=== PATIENT | male | born 1945 | race Caucasian/White ===

== ENCOUNTER 2017-08-27 08:50 | Inpatient (IN) | payer OTHER, MEDICARE ==
--- NOTE | 2017-08-27 09:14 | EDPHY ---
H & P Time Seen by Provider: 08/27/17 08:51 HPI/ROS: CHIEF COMPLAINT: Aggressive behavior HISTORY OF PRESENT ILLNESS: The patient is brought to the emergency department by paramedics after his daughter contacted them with concerns that the patient may be, mentally unstable. The patient reportedly has a history of bipolar mood disorder requiring hospitalization earlier in the year. The patient was cooperative with paramedics. The patient has been cooperative since his arrival in the emergency department. Patient is unable to articulate what medications he takes for his bipolar mood disorder simply stating that his daughter keeps track of these things. The patient denies any recent fall, headache, febrile illness, vomiting or acute complaint. The patient denies suicidal or homicidal ideation. The patient does report that his was recently discharged from [facility] with a hip fracture. REVIEW OF SYSTEMS: A comprehensive 10 point review of systems is otherwise negative aside from elements mentioned in the history of present illness. Source: Patient - Medical/Surgical History Other PMH: Past medical history: Hypertension, diabetes, reported history of bipolar mood disorder - Social History Smoking Status: Never smoked - Physical Exam Exam: General Appearance: Alert, no distress Eyes: Pupils equal and round no pallor or injection ENT, Mouth: Mucous membranes moist Respiratory: There are no retractions, lungs are clear to auscultation Cardiovascular: Regular rate and rhythm Gastrointestinal: Abdomen is soft and nontender, no masses, bowel sounds normal Neurological: A&O, normal motor function, normal sensory exam, normal cranial nerves Skin: Warm and dry, no rashes Musculoskeletal: Neck is supple nontender Extremities: symmetrical, full range of motion Psychiatric: Patient is oriented X 3, there is no agitation, cooperative Constitutional: Initial Vital Signs Temperature (C) 36.8 C 08/27/17 09:03 Heart Rate 75 08/27/17 09:03 Respiratory Rate 16 08/27/17 09:03 Blood Pressure 207/92 H 08/27/17 09:03 O2 Sat (%) 94 08/27/17 09:03 O2 Delivery Mode Room Air Allergies/Adverse Reactions: No Known Drug Allergies Allergy (Verified 08/27/17 09:12) Home Medications: Medication Instructions Recorded Amlodipine Besylate 08/27/17 Aspirin 81mg (*) 08/27/17 Atorvastatin Calcium 08/27/17 Dextrose Oral Gel 08/27/17 Insulin Glargine 08/27/17 Lisinopril 08/27/17 Metformin HCl 08/27/17 Saxagliptin HCl 08/27/17 traZODone 08/27/17 Medical Decision Making ED Course/Re-evaluation: The patient's daughter reports that she has been concerned that the patient is becoming somewhat disorganized and confused over the past several days. The patient was advised by his outpatient psychiatrist to seek emergency department care should this happen. Currently the patient is appropriate not suicidal, not homicidal and has seems oriented to the emergency department and recent history. The patient was recently hospitalized at the [facility] with bipolar mood disorder requiring ECT treatment. He has been here in [place] for the past several weeks. He is currently under the care of a psychiatrist at the [facility]. The patient's daughter would like to take him to the [facility] to be evaluated for voluntary inpatient psychiatric hospitalization. The patient does not currently meet criteria for an M1 psychiatric hold. I did attempt to reach the patient's primary psychiatrist however have not yet heard back from him. At 11:00 a.m. I am informed that the patient's daughter would like to take him to the [facility] and would not like to have me consult with his regular outpatient psychiatrist. As the patient does not currently meet criteria for M1 psychiatric hold the patient will be discharged from the emergency department so that they can be evaluated for psychiatric care at [facility]. Differential Diagnosis: Differential diagnosis considered includes psychosis, bipolar mood disorder, depression, suicidal ideation Departure - Departure Disposition: Home, Routine, Self-Care Clinical Impression: Bipolar mood disorder Condition: Good Instructions: Psychotic Disorder (ED) Additional Instructions: 1. Follow up with Psychiatry of [facility]. 2. Please contact 911 and return to the emergency department for suicidal thoughts, homicidal thoughts, markedly worsening psychiatric disposition or other concerns.
[2017-08-28] MEDS ORDERED: NICOTINE POLACRILEX 2 MG GUM B PRN (01:35)
[2017-08-28] MEDS ORDERED: MAGNESIUM HYDROXIDE 30 ML UDCUP PO PRN (01:35)
[2017-08-28] MEDS: ACETAMINOPHEN 325 MG TAB PO PRN ×3 (05:07→17:32)
[2017-08-28] MEDS: ASPIRIN EC 81 MG TAB PO SCH (08:22)
[2017-08-28] MEDS: LISINOPRIL 20 MG TAB PO SCH (08:23)
[2017-08-28] MEDS: amLODIPine BESYLATE 5 MG TAB PO SCH (08:23)
[2017-08-28] MEDS ORDERED: D50W 25 GM/50 ML SYR IVP PRN (11:58)
[2017-08-28] MEDS: INSULIN LISPRO 100 UNIT/1 ML VIAL STANDARD SC SCH ×2 (12:36→17:10)
--- NOTE | 2017-08-28 14:50 | BCON ---
[f rep st] BEHAVIORAL HEALTH CONSULTATION INTERNAL MEDICINE CONSULTATION DATE OF CONSULTATION: 08/28/2017 REFERRING PHYSICIAN: Niyah Morris MD REASON FOR REFERRAL: Medical clearance for inpatient behavioral health stay. HISTORY OF PRESENT ILLNESS: This patient presented to the [facility] Emergency Department yesterday, brought in by his daughter with concerns that he was mentally unstable. He did not appear to meet criteria for inpatient Behavioral Health at that time, and daughter preferred to take him to the [facility] for evaluation. He was evaluated at the [facility] and subsequently referred back to [facility] for inpatient psychiatry. He currently has no acute medical complaints. PAST MEDICAL HISTORY: 1. Diabetes mellitus type 2. 2. Hypertension. 3. Bipolar disorder with history of prior psychiatric admissions and electroconvulsive therapy. 4. Sciatica. MEDICATIONS: 1. Trazodone 50 mg p.o. at bedtime p.r.n. 2. Aspirin 81 mg p.o. daily. 3. Insulin glargine 40 units subcutaneous daily. 4. Saxagliptin 2.5 mg 1 p.o. daily. 5. Metformin 1000 mg p.o. twice daily. 6. Lisinopril 40 mg p.o. daily. 7. Atorvastatin 80 mg p.o. at bedtime. 8. Amlodipine 5 mg p.o. daily. SOCIAL HISTORY: He is reticent to reveal social history. He apparently lives in assisted living. His may have been in a memory care unit. His has recently had a hip fracture and is currently in a rehabilitation facility. His daughter is involved with his care. 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 He is a nonsmoker and uses occasional alcohol. FAMILY HISTORY: Noncontributory. He makes very vague references to his father , but more to his father's work in the 1950s. REVIEW OF SYSTEMS: He denies fevers, chills, weight gain or weight loss or chest pain, palpitations, dyspnea or cough. No nausea, vomiting, constipation, or diarrhea. He denies dysuria or urinary frequency. He denies loss of sensation in his feet. PHYSICAL EXAM: VITAL SIGNS: Blood pressure is 186/93. This was at 1:40 this morning, heart rate was 85, respiratory rate was 16, oxygen saturation was 98% on room air. Temperature is 36.3 degrees centigrade. His weight is 90.7 kg for a body mass index of 28.3. GENERAL: This is a well-nourished, well- developed man, appears his chronologic age, cooperative and in no acute distress. HEENT: Extraocular movements are intact. Pupils are equal, round, reactive to light. Mucous membranes are moist. Dentition is in good condition. He has uncrowded airway, Mallampati class 1. NECK: Supple. HEART : There is a regular rate and rhythm with no murmurs, rubs, or gallops. LUNGS : Clear to auscultation bilaterally. ABDOMEN: Benign. EXTREMITIES: There is no cyanosis, clubbing, or edema. Radial and posterior tibialis pulses are 2 + bilaterally. NEUROLOGIC: He is alert, he is oriented to his general situation, the month and the date of the month. He identifies the year as 2018. Cranial nerves 2-12 are grossly intact. There is no focal weakness. Sensation is intact to light touch. Gait is within normal limits. [facility] ST[facility] revealed mild anemia with a hemoglobin of 12.3 and hematocrit of 38.1, platelet count was normal. Urine drug screen was negative for any substances of abuse. Troponin was negative. Serum chemistry revealed an elevated chloride at 106, an elevated glucose at 247, but otherwise renal function and electrolytes were within normal limits. Liver function tests were normal. TSH was normal at 1.49. Urinalysis showed 150 mg/ dL of glucose and moderate protein. There was small blood; otherwise, urinalysis was within normal limits. ASSESSMENT AND RECOMMENDATIONS: 1. Mental health issues, pending further evaluation and management per Psychiatry and the mental health team. 2. Possible cognitive impairment. He appears to have expressive aphasia with frequent word substitutions and word finding difficulty. Additionally, he is vague in his responses to many questions. This may be related to his current mental health condition and he does report lack of sleep; however, especially as his mental health condition is stabilized, consider cognitive testing. This could be done per Speech and Language Pathology while he is inpatient, or he could be referred after discharge. 3. Diabetes mellitus type 2. I will order medications per the [facility] list. I will substitute sitagliptin for saxagliptin as sitagliptin is on hospital formulary and I will order his long-acting insulin as well. 4. Hypertension. Current medications appear to be consistent with [facility]. However, blood pressure is markedly elevated. Advise continuing monitoring and if blood pressure remains significantly elevated, would consider addition of a diuretic as he is already on 2 medications versus maximizing doses of the amlodipine and lisinopril. If treatment with lithium is contemplated, then angiotensin-converting enzyme inhibitor should be discontinued. 5. Anemia, unclear etiology. He can have routine workup as an outpatient regarding age-appropriate cancer screening. 6. Hematuria. Advise urology evaluation after discharge. 7. Proteinuria, likely related to hypertension, diabetes, and will be appropriately treated with angiotensin-converting enzyme inhibitor as well as improved blood pressure control. He does not currently have renal insufficiency. I see no medical contraindications to this patient's continued stay in the inpatient behavioral health unit or to any psychiatric medications or procedures. Thank you very much for including me in the care of this patient, and please do not hesitate to contact me or the hospitalist service should there be need for further medical evaluation. /[id number]/MODL MTDD
[2017-08-28] MEDS: INSULIN GLARGINE 100 UNITS/ML UNIT SC SCH (17:10)
[2017-08-28] MEDS: metFORMIN HCL 500 MG TAB PO SCH (17:11)
--- NOTE | 2017-08-28 17:25 | BAPA ---
[f rep st] ADMISSION PSYCHIATRIC ASSESSMENT CHIEF COMPLAINT: "I think it's coming around full robinson. My daughter had me picked up by mistake a nd now I can leave." HISTORY OF PRESENT ILLNESS: The patient is a 72-year-old male with a history of major depr ession with reported recent catatonia treated in May of 2017. He was brought in by his daughter due to erratic behaviors and increasing disorganization. The patient is unable to give a clear hist ory or answer any specific questions in regard to his current emotional state or thinking. He states , "I was in the robinson thing with your nursing staff, and she was excellent. Everything was great un til the rockets came in. It's all right with me as long as they don't change where I live. As long as it's not 600 feet. That is not a complaint. I will pray for those souls, but I can't say I will come back to [facility]." The patient displays a completely disorganized thought process and is unable to give this history. The chart indicates that he has a history of mood disorder and has had catatonia, and that he is under some level of stress with his being in a memory care unit with d iffuse Lewy body disease. His primary caregiver and power of deputy prosecuting attorney is his daughter. I have left a message for her and currently awaiting a callback, hoping to get further information. PAST PSYCHIATRIC HISTORY: Significant for a history of major depression, and he was apparently hospi talized at the [facility] in May of 2017, where he received ECT with good effect for catatonia. He cannot explain why he is not on any medications for depression at this time, however. ALLERGIES: No known medical allergies. CURRENT MEDICATIONS: Amlodipine 50 mg daily, clonidine 0.2 mg at bedtime, and lisinopril 40 mg daily . PAST MEDICAL HISTORY: Significant for hypertension and type 2 diabetes. 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 The patient states that he has napoleon ed his life in [facility], where he still has a home. His daughter lives in this area, aidan h is why he is here at this time. The patient is unable to say whether or not he lives here full-darnell e or with his daughter or in what circumstance. The patient's daughter is his power of deputy prosecuting attorney for medical care. Her phone number is [phone]. The patient is a retired vet, stating he was in [facility] from . He receives services through the [facility]. FAMILY HISTORY: Not obtained. ADMISSION LABORATORY: Additional labs were not drawn. The patient received a full complement of lab oratory testing in the [place] emergency department, though I was only given a verbal report of this and d o not have the physical copies for any at this time. MENTAL STATUS EXAMINATION: Reveals a healthy-appearing, adequately groomed male. He is ap propriately dressed in a shirt, sweat pants, and a jacket. He is also wearing a ball cap and running shoes. He interacts reasonably well and is able to maintain eye contact, though not particularly at tentive. This is primarily a product of his extremely disorganized thought process, as he is unable to relate many concepts at all. He is able to make singular sentences that are, otherwise, unrelated to each other, as demonstrated in his history of present illness. His affect is somewhat labile, as he is irritable at times, laughs at other times, and cries at other times. He describes his mood as "very depressed." His thought process is disorganized. His thought content reveals no mention of p aranoia or other delusional processes, and he denies any auditory, visual, or tactile hallucinations. He is unable to answer questions regarding formal cognitive testing or follow commands in regard to testing of his working memory. He does not answer questions in regard to orientation. He does not, however, seem to be distractible or actively hallucinating. IMPRESSION: Major depressive disorder, recurrent, severe, with psychosis, possible early catatonia, possible dementia, stress with 's illness, and possible stress related to housing situation. The patient is a pleasant 72-year-old male with a history of major depression, with cataton ia and recent decompensation. It is unclear if the level of disorganization we are seeing is related to this or not. He does not appear to be delirious, so it is most likely related to his mood disord er. He was transferred from our facility to the [facility] for evaluation and then transferred back by the [facility], requesting psychiatric treatment with consideration of ECT. We will certainly observe and conside r ECT treatment should we deemed this to be helpful. For now, we will continue him on his previous m edications and conduct serial clinical interviews to provide the best diagnostic impression. Estimated length of stay is 7-10 days. /[id number]/MODL
[2017-08-28] MEDS: MAG HYDROX/AL HYDROX/SIMETH 30 ML UDCUP PO PRN (21:57)
[2017-08-29] MEDS: ACETAMINOPHEN 325 MG TAB PO PRN ×2 (01:34→21:43)
[2017-08-29] MEDS: LORazepam 0.5 MG TAB PO PRN ×2 (01:34→23:54)
[2017-08-29] MEDS: LISINOPRIL 20 MG TAB PO SCH (07:45)
[2017-08-29] MEDS: metFORMIN HCL 500 MG TAB PO SCH ×2 (07:45→17:16)
[2017-08-29] MEDS: INSULIN GLARGINE 100 UNITS/ML UNIT SC SCH ×2 (07:46→17:16)
[2017-08-29] MEDS: ASPIRIN EC 81 MG TAB PO SCH (07:46)
[2017-08-29] MEDS: amLODIPine BESYLATE 5 MG TAB PO SCH (07:46)
[2017-08-29] MEDS: INSULIN LISPRO 100 UNIT/1 ML VIAL STANDARD SC SCH ×3 (07:48→17:24)
--- NOTE | 2017-08-29 11:46 | SOAPPROG ---
SOAP Progress Note Assessment/Plan: Assessment: 08/29/17 17:10 slept 1hr last night, per staff. sometimes noted talking to self, and with disorganized speech/writing to staff states he "had a good night sleep last night, I'm trying to help people, wearing out my shoes..." no physical complaints. thinks he is in hosp b/c "catatonia, my daughter is afraid I'm recurring". Does feel she has reason to feel this way. Feels he is thinking "more clearly this morning and after talking with admissions, I'm coming up the racetrack, like Mr. Puentes's Wild ride..." Wondering why security nodded head towards him earlier today, and whether there was meaning in that denied feeling depressed or having any SI. TP/TC-noted with disorganization, denied AH/VH but seemed to have some ideas of reference and was noted to possibly be responding to int stim later on unit as he was talking to himself. unable to state date, "May", "I didn't look this morning", then frustrated with question and refused to answer further orientation questions. PLAN: hospitalist increased Lisinopril to 40mg qd for HTN Dtr notified staff that she found large hidden liquor bottle at his apt, about 1 /2 full. Will monitor for any sxs of etoh w/d, has not been tremulous, but has had elev BP, P. Has prn Ativan avail, will offer as needed. Thiamine, Folate, MVI. Trazodone 25mg hs prn, with additional 25mg hs prn after 1hr for insomnia. Has been on trazodone in past with benefit. On - exp 08/30. Dtr states he required c.o. ECT in [place] last fall Objective: Vital Signs Temp Pulse Resp BP Pulse Ox 36.6 C 86 16 187/84 H 96 08/29/17 00:22 08/29/17 07:59 08/29/17 07:59 08/29/17 07:59 08/29/17 07:59 - Time Spent With Patient Time Spent With Patient: 40min - Pending Discharge Pending Discharge Within 24 Hours: No Pending Discharge Within 48 Hours: No ICD10 Worksheet Patient Problems: Problems Problem Status Onset Bipolar mood disorder Acute
--- NOTE | 2017-08-29 15:06 | HOSPPROG ---
Hospitalist Progress Note Assessment/Plan: #HTN #IDDM #Bipolar with Agitation Plan: BP have ranged between 160's-low 200 systolic/80''s-90. He attributes it to agitation Cont Amlodipine 5mg daily increase Lisinopril to 40mg daily. Give additional 20 mg today He may need a third agent such as HCTZ but will attempt increase of SHI-I above If [place] is started, strategy will need to be changed cont current insulin regimen Cont Aspirin check Labs Subjective: reports BP is elevated as he is stressed and gets agitated. No CP or SOB Objective: Vital Signs Temp Pulse Resp BP Pulse Ox 36.6 C 102 H 16 178/90 H 95 08/29/17 00:22 08/29/17 11:54 08/29/17 11:54 08/29/17 11:54 08/29/17 11:54 - Physical Exam Constitutional: no apparent distress Eyes: PERRL, EOMI Ears, Nose, Mouth, Throat: moist mucous membranes, hearing normal Cardiovascular: regular rate and rhythym, No edema Respiratory: no respiratory distress, no rales or rhonchi, clear to auscultation Gastrointestinal: normoactive bowel sounds, soft, non-tender abdomen Skin: warm Psychiatric: interacting appropriately, anxious Lymph, Heme, Immunologic: No petechiae ICD10 Worksheet Patient Problems: Problems Problem Status Onset Bipolar mood disorder Acute
[2017-08-29] MEDS ORDERED: LISINOPRIL 20 MG TAB PO ONE (15:15)
[2017-08-30] MEDS ORDERED: traZODone 50 MG TAB PO PRN (00:09)
[2017-08-30] MEDS: INSULIN LISPRO 100 UNIT/1 ML VIAL STANDARD SC SCH ×3 (07:54→16:24)
[2017-08-30] MEDS: MULTIVITAMINS 1 EACH TAB PO SCH (08:09)
[2017-08-30] MEDS: LISINOPRIL 20 MG TAB PO SCH (08:10)
[2017-08-30] MEDS: THIAMINE HCL 100 MG TAB PO SCH (08:10)
[2017-08-30] MEDS: amLODIPine BESYLATE 5 MG TAB PO SCH (08:10)
[2017-08-30] MEDS: ASPIRIN EC 81 MG TAB PO SCH (08:10)
[2017-08-30] MEDS: metFORMIN HCL 500 MG TAB PO SCH ×2 (08:10→17:08)
[2017-08-30] MEDS: FOLIC ACID 1 MG TAB PO SCH (08:10)
[2017-08-30] MEDS: ACETAMINOPHEN 325 MG TAB PO PRN ×2 (11:01→19:48)
[2017-08-30] MEDS: LORazepam 0.5 MG TAB PO PRN (16:20)
--- NOTE | 2017-08-30 20:26 | SOAPPROG ---
SOAP Progress Note Assessment/Plan: Assessment: 08/29/17 17:10 slept 1hr last night, per staff. sometimes noted talking to self, and with disorganized speech/writing to staff states he "had a good night sleep last night, I'm trying to help people, wearing out my shoes..." no physical complaints. thinks he is in hosp b/c "catatonia, my daughter is afraid I'm recurring". Does feel she has reason to feel this way. Feels he is thinking "more clearly this morning and after talking with admissions, I'm coming up the racetrack, like Mr. Puentes's Wild ride..." Wondering why security nodded head towards him earlier today, and whether there was meaning in that denied feeling depressed or having any SI. TP/TC-noted with disorganization, denied AH/VH but seemed to have some ideas of reference and was noted to possibly be responding to int stim later on unit as he was talking to himself. unable to state date, "May", "I didn't look this morning", then frustrated with question and refused to answer further orientation questions. PLAN: hospitalist increased Lisinopril to 40mg qd for HTN Dtr notified staff that she found large hidden liquor bottle at his apt, about 1 /2 full. Will monitor for any sxs of etoh w/d, has not been tremulous, but has had elev BP, P. Has prn Ativan avail, will offer as needed. Thiamine, Folate, MVI. Trazodone 25mg hs prn, with additional 25mg hs prn after 1hr for insomnia. Has been on trazodone in past with benefit. On -08/30. Dtr states he required c.o. ECT in [place] last fall 08/30/17 16:57 slept 3.5hr last night. med error per RN, received 2x Lantus 40u yesterday(am, pm). dose held this am. hospitalist and pt aware. no reported s/e. continued monitoring w/fs glc and clinically. per staff, pt irritated if staff not able to follow his train of thought. continues disorganized. asked staff to help him tear a piece of paper in half, and he was not able to do so b/c had coffee in one hand, required staff to direct him. walks around with his toiletries. agreed to stay as vol patient when M-1 expiring soon discussed, "I will stay b/ c it won't be safe the next 2 days out there...[facility] day events...tonight's excitement...Frenchmen are trying to leaf size picker behind me...fire dept escape area...I need to watch the Olympics to find out what is going on". States he is helping others here, and mentioned a morning twinkle across the street from [place]. On interview, casually dressed, pleasant and engaging. unshaved. good EC, nml speech rate/vol, mood "fine", affect full range, TP/TC-rambling, disorganized and loose, denied AH/VH presently but reports "I heard rockets last night...avalanche control...three BOOMs". talked of having heard someone on above floor dying, and sometimes hears people on floor below. i/j-impaired/ poor. recognizes not completely being at baseline. quite dysexecutive. A/O to person, place "[facility]", and "second month, , " When asked if he felt his thoughts were jumping around, pt pointed to rooms in agui[place] across each other, "the rooms keep switching back and forth" (waves finger back and forth). very fine intention tremor on FNF. Unable to complete Luria hand task without examiner, and had some difficulty copying [id number]. Incorporated F-N-F movements (when checked for tremor) into Luria hand task: fist, touched nose, fist. Endorsed EtOH use at home, especially b/c felt anxious about his falling and going to hospital; about 1.5 "tami cup" size shots, and used to share with 1/2. Unable to clearly state amount or last use, denied recent use, but no more than 1.5 shots/day and not daily. PLAN: Discussed options for signing in vol, d/c or STC upon expiration of M-1. Explained to pt he will be placed on STC even after he agreed to stay voluntarily. Informed of rights which will be reviewed, right to 3rd constitution party notification and legal representation. Apparently with similar sxs but much worse, and completely neg extensive w/u in [place] 05/2017. Was on ativan for catatonia until started ECT. Not sleeping, and had been on trazodone in past with benefit for sleep, 25mg helped some, will incr to 50mg Change prn Ativan to 1mg q4hr prn. Incr freq of VS to QS. BP and P have been elevated. Ativan prn may also help with incr VS, and if any element of etoh w/d altho unlikely at this point and no other sxs. Staff report pt with adeq po oral/fluid intake. Objective: Vital Signs Temp Pulse Resp BP Pulse Ox 36.4 C 98 14 150/72 H 97 08/30/17 05:13 08/30/17 05:13 08/30/17 05:13 08/30/17 05:30 08/30/17 05:13 - Time Spent With Patient Time Spent With Patient: 35min - Pending Discharge Pending Discharge Within 24 Hours: No Pending Discharge Within 48 Hours: No ICD10 Worksheet Patient Problems: Problems Problem Status Onset Bipolar mood disorder Acute
[2017-08-30] MEDS: LORazepam 1 MG TAB PO PRN (20:35)
[2017-08-31] MEDS: LORazepam 1 MG TAB PO PRN ×2 (00:28→19:24)
[2017-08-31] MEDS: traZODone 50 MG TAB PO PRN ×2 (00:28→20:58)
[2017-08-31] MEDS ORDERED: diphenhydrAMINE 25 MG CAP PO ONE (01:45)
[2017-08-31] MEDS ORDERED: LORazepam 1 MG TAB PO ONE (01:45)
[2017-08-31] MEDS ORDERED: LORazepam 2 MG/ML INJ IM ONE (01:45)
[2017-08-31] MEDS: FOLIC ACID 1 MG TAB PO SCH (08:18)
[2017-08-31] MEDS: ASPIRIN EC 81 MG TAB PO SCH (08:18)
[2017-08-31] MEDS: metFORMIN HCL 500 MG TAB PO SCH ×2 (08:19→17:03)
[2017-08-31] MEDS: THIAMINE HCL 100 MG TAB PO SCH (08:20)
[2017-08-31] MEDS: amLODIPine BESYLATE 5 MG TAB PO SCH (08:20)
[2017-08-31] MEDS: LISINOPRIL 20 MG TAB PO SCH (08:21)
[2017-08-31] MEDS: INSULIN GLARGINE 100 UNITS/ML UNIT SC SCH (08:21)
[2017-08-31] MEDS: INSULIN LISPRO 100 UNIT/1 ML VIAL STANDARD SC SCH ×3 (08:21→16:59)
[2017-08-31] MEDS: MULTIVITAMINS 1 EACH TAB PO SCH (08:22)
--- NOTE | 2017-08-31 14:07 | SOAPPROG ---
SOAP Progress Note Assessment/Plan: Assessment: Plan: Subjective: Pt seen, discussed with staff. Remains agitated, disorganized. Completely unable to care for himself. Unable to even pour water in a glass or follow simple commands. More agitated last night requiring E-meds and seclusion. Slept after that. I was able to review the records from [facility]: d/c summary from [facility] where he initially received a full dementia w/u inc: thorough screening for paraneoplastic syndrome. This was all negative. He received 7 acute course ECT treatments that were described as curative. He then d/c'd to home with no meds and did not follow-up until early August. The description of his clinical presentation in May of 2017 was the same as this event. It was noted at that time that he had no history of these sx's or other psychiatric issues and he was diagnosed as having an unspecified mood disorder and catatonia. Interval hx obtained over the weekend from daughter is that she found a large bottle of alcohol in his room. Daughter called "hysterical" (per staff report) this morning stating that patient's is "actively dying" and wanting to take him out of the hospital to visit her. Objective: Vital Signs Temp Pulse Resp BP Pulse Ox 36.6 C 92 16 165/85 H 92 08/31/17 01:21 08/31/17 01:21 08/31/17 01:21 08/31/17 01:21 08/31/17 01:21 MSE: Agitated, restless, pacing without purpose. Noted to be in the milieu attempting to communicate with others, but using repetitive, pallilalic speech that is pressured, voluminous and nonsensical. He demonstrates a high level of non-goal directed behaviors. His affect is somewhat labile, smiling at times and becoming suddenly angry at others in an almost pseudobulbar pattern. He is unable to follow simple commands such as "follow me" without numerous redirections and physical guiding. He cannot answer any questions with a goal- directed response. - Time Spent With Patient Time Spent With Patient: 25" ICD10 Worksheet Patient Problems: Problems Problem Status Onset Bipolar mood disorder Acute
[2017-08-31] MEDS: QUEtiapine FUMARATE 25 MG TAB PO PRN (19:24)
[2017-09-01] MEDS: INSULIN GLARGINE 100 UNITS/ML UNIT SC SCH (08:43)
[2017-09-01] MEDS: LISINOPRIL 20 MG TAB PO SCH (08:44)
[2017-09-01] MEDS: MULTIVITAMINS 1 EACH TAB PO SCH (08:44)
[2017-09-01] MEDS: FOLIC ACID 1 MG TAB PO SCH (08:44)
[2017-09-01] MEDS: amLODIPine BESYLATE 5 MG TAB PO SCH (08:44)
[2017-09-01] MEDS: metFORMIN HCL 500 MG TAB PO SCH ×2 (08:44→18:51)
[2017-09-01] MEDS: THIAMINE HCL 100 MG TAB PO SCH (08:44)
[2017-09-01] MEDS: ASPIRIN EC 81 MG TAB PO SCH (08:44)
[2017-09-01] MEDS: INSULIN LISPRO 100 UNIT/1 ML VIAL STANDARD SC SCH ×3 (08:46→17:38)
[2017-09-01] MEDS: LORazepam 1 MG TAB PO PRN ×2 (10:27→18:52)
[2017-09-01] MEDS: QUEtiapine FUMARATE 25 MG TAB PO PRN ×2 (10:28→15:11)
--- NOTE | 2017-09-01 11:04 | SOAPPROG ---
SOAP Progress Note Assessment/Plan: Assessment: Plan: 09/01/17 11:04 Mood: Remains catatonically excited. Will petition court for involuntary ECT as patient is clearly unable to provide consent at this time. Continue PRN Seroquel and lorazepam. Subjective: Pt seen, discussed with staff. Remains disorganized, unable to meaningfully communicate with others. I waited 30 minutes for him to get dressed and he was unable to organized himself to do this. He stated repeatedly that he was "showering in the shower" though was standing in his room. Daughter called to report patient's last night. RN unable to get patient to speak to daughter on phone. Took PRN Seroquel last night without SE. Slept five hours. Objective: Vital Signs Temp Pulse Resp BP Pulse Ox 36.5 C 81 16 155/79 H 98 09/01/17 06:00 09/01/17 06:00 09/01/17 06:00 09/01/17 06:00 09/01/17 06:00 MSE: Agitated, hyperverbal. Affect is labile. TP is disorganized. TC reveals no evidence of hallucinations. Oriented to person and "[place]." - Time Spent With Patient Time Spent With Patient: 15" ICD10 Worksheet Patient Problems: Problems Problem Status Onset Bipolar mood disorder Acute
[2017-09-01] MEDS: LORazepam 0.5 MG TAB PO SCH ×2 (15:11→21:59)
[2017-09-01] MEDS ORDERED: QUEtiapine FUMARATE 100 MG TAB PO ONE (18:45)
[2017-09-01] MEDS: ACETAMINOPHEN 325 MG TAB PO PRN (19:06)
[2017-09-01] MEDS: traZODone 50 MG TAB PO PRN (21:59)
[2017-09-01] MEDS ORDERED: LORazepam 1 MG TAB PO PRN ×2 (23:00→23:30)
[2017-09-02] MEDS: LORazepam 1 MG TAB PO PRN (02:53)
[2017-09-02] MEDS: LISINOPRIL 20 MG TAB PO SCH (08:22)
[2017-09-02] MEDS: THIAMINE HCL 100 MG TAB PO SCH (08:22)
[2017-09-02] MEDS: LORazepam 0.5 MG TAB PO SCH ×3 (08:23→20:23)
[2017-09-02] MEDS: MULTIVITAMINS 1 EACH TAB PO SCH (08:23)
[2017-09-02] MEDS: FOLIC ACID 1 MG TAB PO SCH (08:23)
[2017-09-02] MEDS: ASPIRIN EC 81 MG TAB PO SCH (08:23)
[2017-09-02] MEDS: metFORMIN HCL 500 MG TAB PO SCH ×2 (08:23→17:16)
[2017-09-02] MEDS: amLODIPine BESYLATE 5 MG TAB PO SCH (08:23)
[2017-09-02] MEDS: INSULIN GLARGINE 100 UNITS/ML UNIT SC SCH (08:24)
[2017-09-02] MEDS: INSULIN LISPRO 100 UNIT/1 ML VIAL STANDARD SC SCH ×3 (08:39→17:16)
--- NOTE | 2017-09-02 14:21 | SOAPPROG ---
SOAP Progress Note Assessment/Plan: Assessment: Plan: 09/01/17 11:04 Mood: Remains catatonically excited. Will petition court for involuntary ECT as patient is clearly unable to provide consent at this time. Continue PRN Seroquel and lorazepam. 09/02/17 14:21 Catatonia: remains agitated, disorganized. Will [facility], await hearing for court ordered ECT. Subjective: Pt seen, discussed with staff. Quite agitated last night, appearing paranoid. Believed people were unsafe in the day room. Attempted to get people to leave, including putting his hands on one patient. Tried to force another patient stay in his room. Remains very disorganized, unable to review these events with me. Unable to communicate effectively or follow commands. Objective: Vital Signs Temp Pulse Resp BP Pulse Ox 36.6 C 90 16 117/64 95 09/02/17 04:40 09/02/17 04:40 09/02/17 04:40 09/02/17 04:40 09/02/17 04:40 MSE: Agitated, pressured. Affect is labile. TP disorganized. Unable to answer questions RE: orientation. Appears to be having paranoid thoughts. - Time Spent With Patient Time Spent With Patient: 15" ICD10 Worksheet Patient Problems: Problems Problem Status Onset Bipolar mood disorder Acute
[2017-09-02] MEDS: QUEtiapine FUMARATE 25 MG TAB PO PRN (20:24)
[2017-09-02] MEDS: traZODone 50 MG TAB PO PRN (20:25)
[2017-09-02] MEDS: MAG HYDROX/AL HYDROX/SIMETH 30 ML UDCUP PO PRN (20:31)
[2017-09-03] MEDS: INSULIN LISPRO 100 UNIT/1 ML VIAL STANDARD SC SCH ×3 (07:48→16:15)
[2017-09-03] MEDS: INSULIN GLARGINE 100 UNITS/ML UNIT SC SCH (07:57)
[2017-09-03] MEDS: amLODIPine BESYLATE 5 MG TAB PO SCH (07:57)
[2017-09-03] MEDS: ASPIRIN EC 81 MG TAB PO SCH (07:58)
[2017-09-03] MEDS: MULTIVITAMINS 1 EACH TAB PO SCH (07:58)
[2017-09-03] MEDS: FOLIC ACID 1 MG TAB PO SCH (07:58)
[2017-09-03] MEDS: THIAMINE HCL 100 MG TAB PO SCH (07:58)
[2017-09-03] MEDS: metFORMIN HCL 500 MG TAB PO SCH ×2 (08:00→16:29)
[2017-09-03] MEDS: LORazepam 0.5 MG TAB PO SCH ×3 (08:00→20:47)
[2017-09-03] MEDS: LISINOPRIL 20 MG TAB PO SCH (08:03)
[2017-09-03] MEDS: LORazepam 1 MG TAB PO PRN ×2 (13:04→22:12)
--- NOTE | 2017-09-03 14:28 | SOAPPROG ---
SOAP Progress Note Assessment/Plan: Assessment: Per Dr. Burciaga's notes: 09/01/17 11:04 Mood: Remains catatonically excited. Will petition court for involuntary ECT as patient is clearly unable to provide consent at this time. Continue PRN Seroquel and lorazepam. 09/02/17 14:21 Catatonia: remains agitated, disorganized. Will [facility], await hearing for court ordered ECT. Subjective: Pt seen, discussed with staff. Quite agitated last night, appearing paranoid. Believed people were unsafe in the day room. Attempted to get people to leave, including putting his hands on one patient. Tried to force another patient stay in his room. Remains very disorganized, unable to review these events with me. Unable to communicate effectively or follow commands. Plan: 09/03/17 14:21 1. Patient is calmer today, but remains confused, disoriented, disorganized. Patient not sure whether his "has passed" or is "staying at rehab." 2. Dressed himself, ate meals and interacted appropriately with peers. Attended but did not participate in group. 3. [facility] - PRN Seroquel and Ativan 4. Dr. Burciaga has petitioned for involuntary ECT Subjective: Met with patient, reviewed chart and d/w staff. Patient presents disorganized and confused, however, he is not excited or agitated as he was the past 2 days. He is calmer and able to sit for 20 minutes and talk to MD in calm, measured tone, but extremely confused and illogical. Patient jumps back and forth between recent events (being in hospital and getting ECT in [place]) and past ( talking about his [employer]'s service and as though it was yesterday) . Patient not able to say how many grandchildren he has or remember their names. He also thinks his is "staying at a rehab facility" but admits she "might have passed." He has no emotional reaction to either one of these thoughts. Patient says he has been spending his time "rearranging the kitchen" apropos of nothing. He jumps immediately to talking about being "exhausted from working so hard" but says "I retired in 2009." He does remember being at [facility] in "May," but can't remember why he was there, "maybe catatonia." No evidence of hallucinations or delusions. Objective: Vital Signs Temp Pulse Resp BP Pulse Ox 36.8 C 92 14 143/73 H 95 09/03/17 00:30 09/03/17 08:00 09/03/17 08:00 09/03/17 08:00 09/03/17 08:00 MSE: Mood: "I'm doing what I know how to do" Affect: Constricted TP: Circumstantial, disorganized, confused TC: Denies any SI/HI, no evidence of hallucination, delusions Insight/Judgment: Impaired - Time Spent With Patient Time Spent With Patient: 25" - Pending Discharge Pending Discharge Within 24 Hours: No Pending Discharge Within 48 Hours: No ICD10 Worksheet Patient Problems: Problems Problem Status Onset Bipolar mood disorder Acute
[2017-09-03] MEDS: ACETAMINOPHEN 325 MG TAB PO PRN (15:45)
[2017-09-04] MEDS: INSULIN LISPRO 100 UNIT/1 ML VIAL STANDARD SC SCH ×3 (07:46→16:19)
[2017-09-04] MEDS: INSULIN GLARGINE 100 UNITS/ML UNIT SC SCH (07:48)
[2017-09-04] MEDS: LISINOPRIL 20 MG TAB PO SCH (07:48)
[2017-09-04] MEDS: FOLIC ACID 1 MG TAB PO SCH (07:48)
[2017-09-04] MEDS: THIAMINE HCL 100 MG TAB PO SCH (07:48)
[2017-09-04] MEDS: LORazepam 0.5 MG TAB PO SCH ×3 (07:49→18:59)
[2017-09-04] MEDS: ASPIRIN EC 81 MG TAB PO SCH (07:49)
[2017-09-04] MEDS: MULTIVITAMINS 1 EACH TAB PO SCH (07:50)
[2017-09-04] MEDS: metFORMIN HCL 500 MG TAB PO SCH ×2 (07:50→18:32)
[2017-09-04] MEDS: amLODIPine BESYLATE 5 MG TAB PO SCH (07:50)
--- NOTE | 2017-09-04 13:29 | SOAPPROG ---
SOAP Progress Note Assessment/Plan: Assessment: Per Dr. Burciaga's notes: 09/01/17 11:04 Mood: Remains catatonically excited. Will petition court for involuntary ECT as patient is clearly unable to provide consent at this time. Continue PRN Seroquel and lorazepam. 09/02/17 14:21 Catatonia: remains agitated, disorganized. Will [facility], await hearing for court ordered ECT. Subjective: Pt seen, discussed with staff. Quite agitated last night, appearing paranoid. Believed people were unsafe in the day room. Attempted to get people to leave, including putting his hands on one patient. Tried to force another patient stay in his room. Remains very disorganized, unable to review these events with me. Unable to communicate effectively or follow commands. Plan: 09/03/17 14:21 1. Patient is calmer today, but remains confused, disoriented, disorganized. Patient not sure whether his "has passed" or is "staying at rehab." 2. Dressed himself, ate meals and interacted appropriately with peers. Attended but did not participate in group. 3. [facility] - PRN Seroquel and Ativan 4. 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 Patient still confused with short term memory loss. He told David BERNARD, he knew his "had passed," but later told he was having a "great day" 2. Patient able to perform ADL's appropriately. 3. Patient received PRN Ativan 1mg x 1 dose last night, no PRN Seroquel since . Subjective: Met with patient, reviewed chart and d/w staff. Patient has been doing ADLs appropriately, ate 100% of meals last night and today. His short term memory is extremely impaired, he will have moments when he recalls his has , but most of the time he behaves as if he doesn't realize it and can't recall details of recent events. He tells , "I've been checking the smoke signals and looking at the [employer] car lot," and then trails off without finishing his thought or making sense. He slept 4.5 hrs last night. Objective: Vital Signs Temp Pulse Resp BP Pulse Ox 36.5 C 72 16 136/65 H 97 09/04/17 00:30 09/04/17 00:30 09/04/17 00:30 09/04/17 00:30 09/04/17 00:30 MSE: Mood: "I'm having a great day." Affect: Flat TP: Disorganized, nonsensical ("checking the smoke signals") TC: Denies any SI/HI, no evidence of psychosis Insight/Judgment: Impaired - Time Spent With Patient Time Spent With Patient: 20" - Pending Discharge Pending Discharge Within 24 Hours: No Pending Discharge Within 48 Hours: No ICD10 Worksheet Patient Problems: Problems Problem Status Onset Bipolar mood disorder Acute
[2017-09-05] MEDS: traZODone 50 MG TAB PO PRN (01:24)
[2017-09-05] MEDS: metFORMIN HCL 500 MG TAB PO SCH ×2 (08:52→17:22)
[2017-09-05] MEDS: FOLIC ACID 1 MG TAB PO SCH (08:52)
[2017-09-05] MEDS: THIAMINE HCL 100 MG TAB PO SCH (08:52)
[2017-09-05] MEDS: LISINOPRIL 20 MG TAB PO SCH (08:52)
[2017-09-05] MEDS: ASPIRIN EC 81 MG TAB PO SCH (08:52)
[2017-09-05] MEDS: MULTIVITAMINS 1 EACH TAB PO SCH (08:52)
[2017-09-05] MEDS: LORazepam 0.5 MG TAB PO SCH ×3 (08:52→21:52)
[2017-09-05] MEDS: amLODIPine BESYLATE 5 MG TAB PO SCH (08:56)
[2017-09-05] MEDS: INSULIN GLARGINE 100 UNITS/ML UNIT SC SCH (08:57)
[2017-09-05] MEDS: INSULIN LISPRO 100 UNIT/1 ML VIAL STANDARD SC SCH ×3 (08:57→17:20)
[2017-09-05] MEDS: ACETAMINOPHEN 325 MG TAB PO PRN (13:43)
--- NOTE | 2017-09-05 14:30 | SOAPPROG ---
SOAP Progress Note Assessment/Plan: Assessment: Per Dr. Burciaga's notes: 09/01/17 11:04 Mood: Remains catatonically excited. Will petition court for involuntary ECT as patient is clearly unable to provide consent at this time. Continue PRN Seroquel and lorazepam. 09/02/17 14:21 Catatonia: remains agitated, disorganized. Will [facility], await hearing for court ordered ECT. Subjective: Pt seen, discussed with staff. Quite agitated last night, appearing paranoid. Believed people were unsafe in the day room. Attempted to get people to leave, including putting his hands on one patient. Tried to force another patient stay in his room. Remains very disorganized, unable to review these events with me. Unable to communicate effectively or follow commands. Plan: 09/03/17 14:21 1. Patient is calmer today, but remains confused, disoriented, disorganized. Patient not sure whether his "has passed" or is "staying at rehab." 2. Dressed himself, ate meals and interacted appropriately with peers. Attended but did not participate in group. 3. [facility] - PRN Seroquel and Ativan 4. 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 Patient still confused with short term memory loss. He told David BERNARD, he knew his "had passed," but later told he was having a "great day" 2. Patient able to perform ADL's appropriately. 3. Patient received PRN Ativan 1mg x 1 dose last night, no PRN Seroquel since . 09/05/17 14:27 1. No significant change from last several days. Still confused and memory impaired. 2. Eating well, sleep is disrupted - frequent MON wakings. Subjective: Met with patient, reviewed chart and d/w staff. Patient talks in rambling sentences, not making much sense. He tells that he saw "white ambulance" that was passing by window several days ago, and that's what prompted him to think about his "passing away." However, this afternoon, patient was trying to call his on phone. Objective: Vital Signs Temp Pulse Resp BP Pulse Ox 36.6 C 90 16 122/59 H 97 09/05/17 00:30 09/05/17 08:00 09/05/17 08:00 09/05/17 08:56 09/05/17 08:00 MSE: Mood: "Great" Affect: Flat TP: Disorganized, illogical, nonsensical TC: No SI/HI, no evidence of psychosis Insight/Judgment: Impaired - Time Spent With Patient Time Spent With Patient: 20" - Pending Discharge Pending Discharge Within 24 Hours: No Pending Discharge Within 48 Hours: No ICD10 Worksheet Patient Problems: Problems Problem Status Onset Bipolar mood disorder Acute
[2017-09-06] MEDS: LORazepam 1 MG TAB PO PRN (03:21)
[2017-09-06] MEDS: INSULIN GLARGINE 100 UNITS/ML UNIT SC SCH (08:58)
[2017-09-06] MEDS: metFORMIN HCL 500 MG TAB PO SCH ×2 (08:59→17:21)
[2017-09-06] MEDS: FOLIC ACID 1 MG TAB PO SCH (08:59)
[2017-09-06] MEDS: ASPIRIN EC 81 MG TAB PO SCH (08:59)
[2017-09-06] MEDS: THIAMINE HCL 100 MG TAB PO SCH (08:59)
[2017-09-06] MEDS: LORazepam 0.5 MG TAB PO SCH ×3 (08:59→22:07)
[2017-09-06] MEDS: MULTIVITAMINS 1 EACH TAB PO SCH (08:59)
[2017-09-06] MEDS: amLODIPine BESYLATE 5 MG TAB PO SCH (08:59)
[2017-09-06] MEDS: LISINOPRIL 20 MG TAB PO SCH (09:09)
[2017-09-06] MEDS: INSULIN LISPRO 100 UNIT/1 ML VIAL STANDARD SC SCH ×3 (09:10→18:12)
--- NOTE | 2017-09-06 13:37 | SOAPPROG ---
SOAP Progress Note Assessment/Plan: Assessment: Per Dr. Burciaga's notes: 09/01/17 11:04 Mood: Remains catatonically excited. Will petition court for involuntary ECT as patient is clearly unable to provide consent at this time. Continue PRN Seroquel and lorazepam. 09/02/17 14:21 Catatonia: remains agitated, disorganized. Will [facility], await hearing for court ordered ECT. Subjective: Pt seen, discussed with staff. Quite agitated last night, appearing paranoid. Believed people were unsafe in the day room. Attempted to get people to leave, including putting his hands on one patient. Tried to force another patient stay in his room. Remains very disorganized, unable to review these events with me. Unable to communicate effectively or follow commands. Plan: 09/03/17 14:21 1. Patient is calmer today, but remains confused, disoriented, disorganized. Patient not sure whether his "has passed" or is "staying at rehab." 2. Dressed himself, ate meals and interacted appropriately with peers. Attended but did not participate in group. 3. [facility] - PRN Seroquel and Ativan 4. 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 Patient still confused with short term memory loss. He told David BERNARD, he knew his "had passed," but later told he was having a "great day" 2. Patient able to perform ADL's appropriately. 3. Patient received PRN Ativan 1mg x 1 dose last night, no PRN Seroquel since . 09/05/17 14:27 1. No significant change from last several days. Still confused and memory impaired. 2. Eating well, sleep is disrupted - frequent MON wakings. 09/06/17 13:33 1. Patient remains confused, but still able to participate in groups in limited way. 2. Eating well, but continues to have disrupted sleep (5 hrs last night). Subjective: Met with patient, reviewed chart and d/w staff. Patient asked to leave hospital several times, however, explained his daughter was planning to visit on unit early this week on Thursday or Thursday. He said "she's probably taking the kids somewhere." Patient doesn't remember that his daughter is making arrangements for his 's burial, but does not remind him as this would not be beneficial to his mental state at the current time. Objective: Vital Signs Temp Pulse Resp BP Pulse Ox 36.6 C 80 16 152/68 H 93 09/06/17 06:37 09/06/17 06:37 09/06/17 06:37 09/06/17 09:09 09/06/17 06:37 MSE: Mood: "OK" Affect: Euthymic TP: Confused, illogical, short term memory impairment TC: Denies any SI/HI, no evidence of psychosis Insight/Judgment: Impaired - Time Spent With Patient Time Spent With Patient: 20" - Pending Discharge Pending Discharge Within 24 Hours: No Pending Discharge Within 48 Hours: No ICD10 Worksheet Patient Problems: Problems Problem Status Onset Bipolar mood disorder Acute
[2017-09-07] MEDS: INSULIN GLARGINE 100 UNITS/ML UNIT SC SCH (08:28)
[2017-09-07] MEDS: INSULIN LISPRO 100 UNIT/1 ML VIAL STANDARD SC SCH ×3 (08:28→17:39)
[2017-09-07] MEDS: amLODIPine BESYLATE 5 MG TAB PO SCH (08:29)
[2017-09-07] MEDS: ASPIRIN EC 81 MG TAB PO SCH (08:29)
[2017-09-07] MEDS: THIAMINE HCL 100 MG TAB PO SCH (08:29)
[2017-09-07] MEDS: metFORMIN HCL 500 MG TAB PO SCH ×2 (08:29→17:42)
[2017-09-07] MEDS: FOLIC ACID 1 MG TAB PO SCH (08:29)
[2017-09-07] MEDS: MULTIVITAMINS 1 EACH TAB PO SCH (08:29)
[2017-09-07] MEDS: LORazepam 0.5 MG TAB PO SCH ×3 (08:29→22:21)
[2017-09-07] MEDS: LISINOPRIL 20 MG TAB PO SCH (08:29)
--- NOTE | 2017-09-07 14:37 | SOAPPROG ---
SOAP Progress Note Assessment/Plan: Assessment: Plan: 09/01/17 11:04 Mood: Remains catatonically excited. Will petition court for involuntary ECT as patient is clearly unable to provide consent at this time. Continue PRN Seroquel and lorazepam. 09/02/17 14:21 Catatonia: remains agitated, disorganized. Will [facility], await hearing for court ordered ECT. 09/07/17 14:38 Catatonia: Remains quite ill. Unable to discuss treatment per previous encounters. No improvement over my absence. Awaiting hearing for [facility]. Subjective: Pt seen, discussed with staff. Reports feeling "great, just great." States, " I think I've pretty much done my job here and I need to get home." States he is worried about his . Indicates she is "sick" and "in a home." Slept better last night, >6 hours. Remains generally agitated, disorganized. Staff describes him as less paranoid. He continues to worry excessively about contamination, especially as it applies to himself or others being harmed. Less intrusive with others. Objective: Vital Signs Temp Pulse Resp BP Pulse Ox 36.4 C 68 14 159/71 H 97 09/07/17 06:29 09/07/17 06:29 09/07/17 06:29 09/07/17 06:29 09/07/17 06:29 MSE: Moderately agitated, unable to sustain full attention to interview. Affect is expansive, elevated. Mood is "great." TP disorganized. TC reveals continued paranoid thoughts. Poorly oriented to person only. - Time Spent With Patient Time Spent With Patient: 15" ICD10 Worksheet Patient Problems: Problems Problem Status Onset Bipolar mood disorder Acute
[2017-09-07] MEDS: ACETAMINOPHEN 325 MG TAB PO PRN ×2 (15:08→21:16)
[2017-09-07] MEDS: LORazepam 1 MG TAB PO PRN (23:35)
[2017-09-08] MEDS: ACETAMINOPHEN 325 MG TAB PO PRN (07:21)
[2017-09-08] MEDS: INSULIN LISPRO 100 UNIT/1 ML VIAL STANDARD SC SCH ×3 (08:06→17:53)
[2017-09-08] MEDS: metFORMIN HCL 500 MG TAB PO SCH ×2 (08:07→18:12)
[2017-09-08] MEDS: LORazepam 0.5 MG TAB PO SCH ×3 (08:08→19:07)
[2017-09-08] MEDS: INSULIN GLARGINE 100 UNITS/ML UNIT SC SCH (08:14)
[2017-09-08] MEDS: THIAMINE HCL 100 MG TAB PO SCH (10:20)
[2017-09-08] MEDS: MULTIVITAMINS 1 EACH TAB PO SCH (10:20)
[2017-09-08] MEDS: FOLIC ACID 1 MG TAB PO SCH (10:20)
[2017-09-08] MEDS: LISINOPRIL 20 MG TAB PO SCH (10:20)
[2017-09-08] MEDS: ASPIRIN EC 81 MG TAB PO SCH (10:21)
[2017-09-08] MEDS: amLODIPine BESYLATE 5 MG TAB PO SCH (10:21)
--- NOTE | 2017-09-08 14:00 | SOAPPROG ---
SOAP Progress Note Assessment/Plan: Assessment: Plan: 09/01/17 11:04 Mood: Remains catatonically excited. Will petition court for involuntary ECT as patient is clearly unable to provide consent at this time. Continue PRN Seroquel and lorazepam. 09/02/17 14:21 Catatonia: remains agitated, disorganized. Will [facility], await hearing for court ordered ECT. 09/07/17 14:38 Catatonia: Remains quite ill. Unable to discuss treatment per previous encounters. No improvement over my absence. Awaiting hearing for [facility]. 09/08/17 14:02 Catatonia: Some improvement. Will begin ECT tomorrow. Subjective: Pt seen, discussed with staff. He only slept two hours last night. He is better able to communicate recently though remains generally agitated and disorganized. He stipulated to ECT yesterday with his title attorney. I spoke with him at length today about ECT including risks, benefits and alternatives. It is unclear whether he fully understood this or not. He stated, "I need to get it going." Objective: Vital Signs Temp Pulse Resp BP Pulse Ox 36.9 C 91 14 174/82 H 95 09/08/17 11:19 09/08/17 11:19 09/08/17 11:19 09/08/17 11:19 09/08/17 11:19 MSE: Marginally groomed, coop. Elevated level of psychomotor activity, though improved. Affect is labile. Mood is "good." TP disorganized. TC reveals ongoing paranoia. A&Ox2. - Time Spent With Patient Time Spent With Patient: 25" ICD10 Worksheet Patient Problems: Problems Problem Status Onset Bipolar mood disorder Acute
--- NOTE | 2017-09-08 15:15 | CPEKG ---
Heart Rate: 75 RR Interval: 800 P-R Interval: 188 QRSD Interval: 100 QT Interval: 384 QTC Interval: 429 P [place]: 6 QRS [place]: -35 T Wave [place]: 43 EKG Severity - ABNORMAL ECG - EKG Impression: SINUS RHYTHM EKG Impression: LEFT AXIS DEVIATION EKG Impression: LEFT VENTRICULAR HYPERTROPHY Electronically Signed By: Zion Peraza 09-Sep-2017 11:54:41
[2017-09-09] MEDS ORDERED: ONDANSETRON DISINTEGRATING 4 MG TAB PO ONE (06:00)
[2017-09-09] MEDS ORDERED: NS 1,000 ML IV ONE (06:00)
[2017-09-09] MEDS ORDERED: LIDOCAINE 2% 5 ML SDV ID ONE (06:00)
[2017-09-09] MEDS ORDERED: CITRIC ACID/SODIUM CITRATE 30 ML UDCUP PO ONE (06:00)
[2017-09-09] MEDS ORDERED: MIDAZOLAM 2 MG/2 ML VIAL ONE (06:41)
[2017-09-09] MEDS ORDERED: GLYCOPYRROLATE 0.2 MG/1 ML VIAL ONE (06:42)
[2017-09-09] MEDS ORDERED: SUCCINYLCHOLINE CHLORIDE 200 MG/10 ML VIAL ONE (06:42)
[2017-09-09] MEDS ORDERED: ONDANSETRON 4 MG/2 ML VIAL ONE (06:42)
[2017-09-09] MEDS ORDERED: ETOMIDATE 20 MG/10 ML VIAL ONE (06:42)
[2017-09-09] MEDS ORDERED: fentaNYL 100 MCG/2 ML INJ ONE (06:42)
[2017-09-09] MEDS ORDERED: ROCURONIUM 50 MG/5 ML VIAL ONE (06:42)
[2017-09-09] MEDS: INSULIN LISPRO 100 UNIT/1 ML VIAL STANDARD SC SCH ×3 (07:32→18:04)
[2017-09-09] MEDS: metFORMIN HCL 500 MG TAB PO SCH (07:45)
[2017-09-09] MEDS: LISINOPRIL 20 MG TAB PO SCH (07:46)
[2017-09-09] MEDS: ASPIRIN EC 81 MG TAB PO SCH (07:47)
[2017-09-09] MEDS: amLODIPine BESYLATE 5 MG TAB PO SCH (07:47)
[2017-09-09] MEDS: MULTIVITAMINS 1 EACH TAB PO SCH (07:47)
[2017-09-09] MEDS: FOLIC ACID 1 MG TAB PO SCH (07:47)
[2017-09-09] MEDS: THIAMINE HCL 100 MG TAB PO SCH (07:48)
[2017-09-09] MEDS ORDERED: CITRIC ACID/SODIUM CITRATE 30 ML UDCUP ONE (12:38)
[2017-09-09] MEDS ORDERED: ONDANSETRON DISINTEGRATING 4 MG TAB ONE (12:38)
--- NOTE | 2017-09-09 13:52 | SOAPPROG ---
SOAP Progress Note Assessment/Plan: Assessment: Plan: 09/01/17 11:04 Mood: Remains catatonically excited. Will petition court for involuntary ECT as patient is clearly unable to provide consent at this time. Continue PRN Seroquel and lorazepam. 09/02/17 14:21 Catatonia: remains agitated, disorganized. Will [facility], await hearing for court ordered ECT. 09/07/17 14:38 Catatonia: Remains quite ill. Unable to discuss treatment per previous encounters. No improvement over my absence. Awaiting hearing for [facility]. 09/08/17 14:02 Catatonia: Some improvement. Will begin ECT tomorrow. 09/09/17 13:54 Catatonia: No change. Refuses treatment today. I did not receive the copy of the court order until after the encounter with patient. He was returned to the unit and I will work with nursing staff to formulate a plan for pretreatment sedation for Thursday. The records from the [place] [facility] indicate that he responded very well to the first treatment there and became more cooperative. Subjective: Pt seen, discussed with staff. Remains agitated, disorganized, uncooperative. Slept four hours last night. Agreed to ECT yesterday, but today refused when he arrived in treatment area. He rambles about various conspiracies involving several doctors from [place], his daughter, and the government. He is unable to voice any reasonable or understandable objection though is adamant he will not treat today. I explained that he stipulated to the court order and he states, "That doesn't matter." He does remember being under court-ordered treatment in [place], but states, "They had no right to do that, it was just my daughter." At one point, he suddenly sat up and said he saw his daughter walk by in the hallway despite the fact that the door was closed to the hallway and there is no window. Objective: Vital Signs Temp Pulse Resp BP Pulse Ox 36.3 C 71 15 138/63 H 98 09/09/17 00:30 09/09/17 00:30 09/09/17 00:30 09/09/17 00:30 09/09/17 00:30 MSE: Moderately agitated, antagonistic. Affect is slightly irritable, though he does smile and seem to try to joke at times. TP is tangential. TC reveals persecutory and grandiose delusions. Insight and judgement are very poor. - Time Spent With Patient Time Spent With Patient: 25" ICD10 Worksheet Patient Problems: Problems Problem Status Onset Bipolar mood disorder Acute
[2017-09-09] MEDS: LORazepam 0.5 MG TAB PO SCH ×2 (15:55→21:33)
[2017-09-09] MEDS: traZODone 50 MG TAB PO PRN (22:13)
[2017-09-10] MEDS: LORazepam 1 MG TAB PO PRN (03:50)
[2017-09-10] MEDS: INSULIN GLARGINE 100 UNITS/ML UNIT SC SCH (09:50)
[2017-09-10] MEDS: LISINOPRIL 20 MG TAB PO SCH (09:51)
[2017-09-10] MEDS: metFORMIN HCL 500 MG TAB PO SCH ×2 (09:52→17:16)
[2017-09-10] MEDS: FOLIC ACID 1 MG TAB PO SCH (09:52)
[2017-09-10] MEDS: amLODIPine BESYLATE 5 MG TAB PO SCH (09:52)
[2017-09-10] MEDS: THIAMINE HCL 100 MG TAB PO SCH (09:52)
[2017-09-10] MEDS: MULTIVITAMINS 1 EACH TAB PO SCH (09:53)
[2017-09-10] MEDS: LORazepam 0.5 MG TAB PO SCH ×3 (09:53→21:07)
[2017-09-10] MEDS: ASPIRIN EC 81 MG TAB PO SCH (09:53)
[2017-09-10] MEDS: INSULIN LISPRO 100 UNIT/1 ML VIAL STANDARD SC SCH ×3 (10:48→16:57)
--- NOTE | 2017-09-10 14:12 | SOAPPROG ---
SOAP Progress Note Assessment/Plan: Assessment: Plan: 09/01/17 11:04 Mood: Remains catatonically excited. Will petition court for involuntary ECT as patient is clearly unable to provide consent at this time. Continue PRN Seroquel and lorazepam. 09/02/17 14:21 Catatonia: remains agitated, disorganized. Will [facility], await hearing for court ordered ECT. 09/07/17 14:38 Catatonia: Remains quite ill. Unable to discuss treatment per previous encounters. No improvement over my absence. Awaiting hearing for [facility]. 09/08/17 14:02 Catatonia: Some improvement. Will begin ECT tomorrow. 09/09/17 13:54 Catatonia: No change. Refuses treatment today. I did not receive the copy of the court order until after the encounter with patient. He was returned to the unit and I will work with nursing staff to formulate a plan for pretreatment sedation for Thursday. The records from the [facility] indicate that he responded very well to the first treatment there and became more cooperative. 09/10/17 14:13 Catatonia: No change. We need to reverse this as soon as possible. Will proceed with involuntary treatment tomorrow. Will discuss plan with Nurse Mgkarma and Dr. Greer. Subjective: Pt seen, discussed with staff. Remains agitated, disorganized. Conversant earlier, stating he wanted to talk to me. When I approached him, he was unable to identify any topic, jumping from one to another. Continues to refuse ECT, though remains unable to give a reason why except to believe his daughter is somehow nefariously behind it. Slept four hours last night. Unable to complete ADL's without staff prompting and monitoring. Objective: Vital Signs Temp Pulse Resp BP Pulse Ox 36.5 C 78 12 139/78 H 96 09/10/17 00:30 09/10/17 09:33 09/10/17 09:33 09/10/17 09:33 09/10/17 09:33 MSE: Poorly groom, agitated. Affect is elevated, labile. Mood is "great." TP disorganized. TC reveals paranoid and grandiose delusions. - Time Spent With Patient Time Spent With Patient: 15" ICD10 Worksheet Patient Problems: Problems Problem Status Onset Bipolar mood disorder Acute
[2017-09-11] MEDS ORDERED: ONDANSETRON DISINTEGRATING 4 MG TAB PO ONE (04:00)
[2017-09-11] MEDS ORDERED: CITRIC ACID/SODIUM CITRATE 30 ML UDCUP PO ONE (04:00)
[2017-09-11] MEDS ORDERED: LIDOCAINE 2% 5 ML SDV ID ONE (04:00)
[2017-09-11] MEDS ORDERED: NS 1,000 ML IV ONE (04:00)
[2017-09-11] MEDS ORDERED: fentaNYL 100 MCG/2 ML INJ ONE (05:16)
[2017-09-11] MEDS ORDERED: MIDAZOLAM 2 MG/2 ML VIAL ONE (05:16)
[2017-09-11] MEDS ORDERED: SUCCINYLCHOLINE CHLORIDE 200 MG/10 ML VIAL ONE (05:17)
[2017-09-11] MEDS ORDERED: ONDANSETRON 4 MG/2 ML VIAL ONE (05:17)
[2017-09-11] MEDS ORDERED: ROCURONIUM 50 MG/5 ML VIAL ONE (05:17)
[2017-09-11] MEDS ORDERED: ETOMIDATE 20 MG/10 ML VIAL ONE (05:17)
[2017-09-11] MEDS ORDERED: GLYCOPYRROLATE 0.2 MG/1 ML VIAL ONE (05:17)
[2017-09-11] MEDS ORDERED: KETAMINE 500 MG/10 ML VIAL IM ONE (06:00)
[2017-09-11] MEDS ORDERED: CITRIC ACID/SODIUM CITRATE 30 ML UDCUP ONE (07:31)
[2017-09-11] MEDS ORDERED: ONDANSETRON DISINTEGRATING 4 MG TAB ONE (07:31)
[2017-09-11] MEDS: INSULIN LISPRO 100 UNIT/1 ML VIAL STANDARD SC SCH ×3 (08:28→16:58)
[2017-09-11] MEDS: metFORMIN HCL 500 MG TAB PO SCH ×3 (10:55→16:58)
[2017-09-11] MEDS: INSULIN GLARGINE 100 UNITS/ML UNIT SC SCH ×2 (10:56→12:58)
[2017-09-11] MEDS: LISINOPRIL 20 MG TAB PO SCH ×2 (10:56→12:58)
[2017-09-11] MEDS: THIAMINE HCL 100 MG TAB PO SCH ×2 (10:56→13:12)
[2017-09-11] MEDS: MULTIVITAMINS 1 EACH TAB PO SCH ×2 (10:56→13:11)
[2017-09-11] MEDS: ASPIRIN EC 81 MG TAB PO SCH ×2 (10:57→12:57)
[2017-09-11] MEDS: FOLIC ACID 1 MG TAB PO SCH ×2 (10:57→12:58)
[2017-09-11] MEDS: amLODIPine BESYLATE 5 MG TAB PO SCH ×2 (10:57→12:57)
[2017-09-11] MEDS: LORazepam 0.5 MG TAB PO SCH ×6 (10:57→21:12)
--- NOTE | 2017-09-11 16:08 | SOAPPROG ---
SOAP Progress Note Assessment/Plan: Assessment: Plan: 09/01/17 11:04 Mood: Remains catatonically excited. Will petition court for involuntary ECT as patient is clearly unable to provide consent at this time. Continue PRN Seroquel and lorazepam. 09/02/17 14:21 Catatonia: remains agitated, disorganized. Will CCM, await hearing for court ordered ECT. 09/07/17 14:38 Catatonia: Remains quite ill. Unable to discuss treatment per previous encounters. No improvement over my absence. Awaiting hearing for COECT. 09/08/17 14:02 Catatonia: Some improvement. Will begin ECT tomorrow. 09/09/17 13:54 Catatonia: No change. Refuses treatment today. I did not receive the copy of the court order until after the encounter with patient. He was returned to the unit and I will work with nursing staff to formulate a plan for pretreatment sedation for Thursday. The records from the [facility] indicate that he responded very well to the first treatment there and became more cooperative. 09/10/17 14:13 Catatonia: No change. We need to reverse this as soon as possible. Will proceed with involuntary treatment tomorrow. Will discuss plan with Nurse and Dr. Greer. 09/11/17 16:08 Catatonia: Unchanged. Started acute course ECT today. Expect rapid recovery. Subjective: Pt seen, discussed with staff. His daughter Payal came in early this morning and was able to persuade him to do ECT. He underwent bilateral treatment at 55% without complication. Acceptable seizure. Was alert and interactive later on the unit. Joking appropriately with me. Objective: Vital Signs Temp Pulse Resp BP Pulse Ox 36.6 C 60 12 124/59 H 98 09/11/17 08:41 09/11/17 11:45 09/11/17 10:30 09/11/17 11:45 09/11/17 11:45 MSE: Marginally groomed, coop. Affect is euthymic, smiling. Mood is "fine." TP disorganized, though can give some goal-directed answers to simple questions. Remains paranoid and grandiose, though able to interact with his daughter without difficulty. - Time Spent With Patient Time Spent With Patient: 35" ICD10 Worksheet Patient Problems: Problems Problem Status Onset Bipolar mood disorder Acute
[2017-09-11] MEDS: ACETAMINOPHEN 325 MG TAB PO PRN (19:12)
[2017-09-11] MEDS: traZODone 50 MG TAB PO PRN (22:48)
[2017-09-12] MEDS: LORazepam 1 MG TAB PO PRN ×2 (04:25→23:49)
[2017-09-12] MEDS: INSULIN LISPRO 100 UNIT/1 ML VIAL STANDARD SC SCH ×3 (08:16→17:19)
[2017-09-12] MEDS: INSULIN GLARGINE 100 UNITS/ML UNIT SC SCH (08:17)
[2017-09-12] MEDS: MULTIVITAMINS 1 EACH TAB PO SCH (08:19)
[2017-09-12] MEDS: ASPIRIN EC 81 MG TAB PO SCH (08:19)
[2017-09-12] MEDS: LISINOPRIL 20 MG TAB PO SCH (08:20)
[2017-09-12] MEDS: metFORMIN HCL 500 MG TAB PO SCH ×2 (08:20→17:41)
[2017-09-12] MEDS: FOLIC ACID 1 MG TAB PO SCH (08:21)
[2017-09-12] MEDS: amLODIPine BESYLATE 5 MG TAB PO SCH (08:21)
[2017-09-12] MEDS: LORazepam 0.5 MG TAB PO SCH ×3 (08:21→22:47)
[2017-09-12] MEDS: THIAMINE HCL 100 MG TAB PO SCH (13:23)
--- NOTE | 2017-09-12 17:10 | SOAPPROG ---
SOAP Progress Note Assessment/Plan: Assessment: Per Dr. Burciaga's notes: 09/07/17 14:38 Catatonia: Remains quite ill. Unable to discuss treatment per previous encounters. No improvement over my absence. Awaiting hearing for COECT. 09/08/17 14:02 Catatonia: Some improvement. Will begin ECT tomorrow. 09/09/17 13:54 Catatonia: No change. Refuses treatment today. I did not receive the copy of the court order until after the encounter with patient. He was returned to the unit and I will work with nursing staff to formulate a plan for pretreatment sedation for Thursday. The records from the [facility] indicate that he responded very well to the first treatment there and became more cooperative. 09/10/17 14:13 Catatonia: No change. We need to reverse this as soon as possible. Will proceed with involuntary treatment tomorrow. Will discuss plan with Nurse Mgr and Dr. Greer. 09/11/17 16:08 Catatonia: Unchanged. Started acute course ECT today. Expect rapid recovery. Plan: 09/12/17 17:04 1. Patient received ECT this week 2. CCM - limited improvement 3. Slept 3 hrs last night, eating well Subjective: Met with patient, reviewed chart and d/w staff. Patient continues to present confused and disorganized. He did not remember meeting with his daughter yesterday. He asked MD, "when are we going to have that family meeting?" He has thought blocking and derailment, frequently statements are non sequiturs without any logical connection to each other. He also mentioned several times, "I'm ready to go..." without any context, ie where are you going? who's picking you up? have you discussed with your daughter? Objective: Vital Signs Temp Pulse Resp BP Pulse Ox 36.4 C 79 16 144/68 H 97 09/12/17 16:00 09/12/17 16:00 09/12/17 16:00 09/12/17 16:00 09/12/17 16:00 MSE: Mood: "Fine" Affect: Constricted TP: Disorganized, illogical, nonsensical TC: No SI/HI, denies hallucinations Insight/Judgment: Impaired - Time Spent With Patient Time Spent With Patient: 20" - Pending Discharge Pending Discharge Within 24 Hours: No Pending Discharge Within 48 Hours: No ICD10 Worksheet Patient Problems: Problems Problem Status Onset Bipolar mood disorder Acute
[2017-09-13] MEDS: LORazepam 1 MG TAB PO PRN (05:12)
[2017-09-13] MEDS: metFORMIN HCL 500 MG TAB PO SCH ×2 (08:44→17:13)
[2017-09-13] MEDS: FOLIC ACID 1 MG TAB PO SCH (08:45)
[2017-09-13] MEDS: LISINOPRIL 20 MG TAB PO SCH (08:45)
[2017-09-13] MEDS: INSULIN GLARGINE 100 UNITS/ML UNIT SC SCH (08:45)
[2017-09-13] MEDS: ASPIRIN EC 81 MG TAB PO SCH (08:45)
[2017-09-13] MEDS: MULTIVITAMINS 1 EACH TAB PO SCH (08:45)
[2017-09-13] MEDS: amLODIPine BESYLATE 5 MG TAB PO SCH (08:46)
[2017-09-13] MEDS: LORazepam 0.5 MG TAB PO SCH ×3 (08:46→15:47)
[2017-09-13] MEDS: INSULIN LISPRO 100 UNIT/1 ML VIAL STANDARD SC SCH ×3 (08:48→15:46)
[2017-09-13] MEDS: THIAMINE HCL 100 MG TAB PO SCH (09:04)
--- NOTE | 2017-09-13 14:31 | SOAPPROG ---
SOAP Progress Note Assessment/Plan: Assessment: Per Dr. Burciaga's notes: 09/07/17 14:38 Catatonia: Remains quite ill. Unable to discuss treatment per previous encounters. No improvement over my absence. Awaiting hearing for COECT. 09/08/17 14:02 Catatonia: Some improvement. Will begin ECT tomorrow. 09/09/17 13:54 Catatonia: No change. Refuses treatment today. I did not receive the copy of the court order until after the encounter with patient. He was returned to the unit and I will work with nursing staff to formulate a plan for pretreatment sedation for Thursday. The records from the [facility] indicate that he responded very well to the first treatment there and became more cooperative. 09/10/17 14:13 Catatonia: No change. We need to reverse this as soon as possible. Will proceed with involuntary treatment tomorrow. Will discuss plan with Nurse and Dr. Greer. 09/11/17 16:08 Catatonia: Unchanged. Started acute course ECT today. Expect rapid recovery. Plan: 09/12/17 17:04 1. Patient received ECT this week 2. CCM - limited improvement 3. Slept 3 hrs last night, eating well 09/13/17 14:26 1. More irritable and perseverative today. Argues with staff and repeats questions multiple times. 2. Slept 2-3 hrs last night. Is up pacing in his room most of the night per staff. 3. Next ECT on Thursday 4. CCM - no change Subjective: Met with patient, reviewed chart and d/w staff. Patient is more confused and irritable today. He gets up during art therapy several times b/c he thinks group is over, even thought everyone else is still drawing and coloring. He took meds this AM. He tells MD that he is going to "have a meeting with my " and then looks confused and says, "I think I mean my daughter." Patient is unable to maintain focus on conversation for more than 30 sec before he is talking about something else. At one point, he abruptly gets up from conversation and goes to his room to get a pillow. Instead of coming back to talk to MD, he takes pillow to a MHT and starts a completely different conversation. Objective: Vital Signs Temp Pulse Resp BP Pulse Ox 36.5 C 73 16 151/72 H 96 09/13/17 04:45 09/13/17 04:45 09/13/17 04:45 09/13/17 04:45 09/13/17 04:45 MSE: Mood: No answer Affect: Labile, irritable, argumentative TP: Disorganized , confused, nonsensical TC: No SI/HI, no obvious psychosis, his thought blocking and derailment appear to be related to cognitive impairment rather than psychosis per se Insight/Judgment: Impaired - Time Spent With Patient Time Spent With Patient: 20" - Pending Discharge Pending Discharge Within 24 Hours: No Pending Discharge Within 48 Hours: No ICD10 Worksheet Patient Problems: Problems Problem Status Onset Bipolar mood disorder Acute
[2017-09-13] MEDS: traZODone 50 MG TAB PO PRN (22:32)
[2017-09-14] MEDS ORDERED: CITRIC ACID/SODIUM CITRATE 30 ML UDCUP PO ONE (04:00)
[2017-09-14] MEDS ORDERED: ONDANSETRON DISINTEGRATING 4 MG TAB PO ONE (04:00)
[2017-09-14] MEDS ORDERED: LIDOCAINE 2% 5 ML SDV ID ONE (04:00)
[2017-09-14] MEDS ORDERED: NS 1,000 ML IV ONE (04:00)
[2017-09-14] MEDS: amLODIPine BESYLATE 5 MG TAB PO SCH (05:03)
[2017-09-14] MEDS: LISINOPRIL 20 MG TAB PO SCH (05:03)
[2017-09-14] MEDS ORDERED: fentaNYL 100 MCG/2 ML INJ ONE (05:38)
[2017-09-14] MEDS ORDERED: GLYCOPYRROLATE 0.2 MG/1 ML VIAL ONE (05:39)
[2017-09-14] MEDS ORDERED: ONDANSETRON 4 MG/2 ML VIAL ONE (05:39)
[2017-09-14] MEDS ORDERED: ETOMIDATE 20 MG/10 ML VIAL ONE (05:39)
[2017-09-14] MEDS ORDERED: ROCURONIUM 50 MG/5 ML VIAL ONE (05:39)
[2017-09-14] MEDS ORDERED: MIDAZOLAM 2 MG/2 ML VIAL ONE (05:39)
[2017-09-14] MEDS ORDERED: SUCCINYLCHOLINE CHLORIDE 200 MG/10 ML VIAL ONE (05:39)
[2017-09-14] MEDS ORDERED: CITRIC ACID/SODIUM CITRATE 30 ML UDCUP ONE (06:49)
[2017-09-14] MEDS ORDERED: ONDANSETRON DISINTEGRATING 4 MG TAB ONE (06:49)
[2017-09-14] MEDS: INSULIN LISPRO 100 UNIT/1 ML VIAL STANDARD SC SCH ×3 (09:38→17:22)
[2017-09-14] MEDS: INSULIN GLARGINE 100 UNITS/ML UNIT SC SCH (10:59)
[2017-09-14] MEDS: ASPIRIN EC 81 MG TAB PO SCH (11:00)
[2017-09-14] MEDS: metFORMIN HCL 500 MG TAB PO SCH ×3 (11:00→17:21)
[2017-09-14] MEDS: LORazepam 0.5 MG TAB PO SCH ×4 (11:00→21:42)
[2017-09-14] MEDS: THIAMINE HCL 100 MG TAB PO SCH (11:00)
[2017-09-14] MEDS: MULTIVITAMINS 1 EACH TAB PO SCH (11:00)
[2017-09-14] MEDS: FOLIC ACID 1 MG TAB PO SCH (11:01)
[2017-09-14] MEDS: ACETAMINOPHEN 325 MG TAB PO PRN ×2 (12:59→23:22)
--- NOTE | 2017-09-14 14:59 | SOAPPROG ---
SOAP Progress Note Assessment/Plan: Assessment: Plan: 09/01/17 11:04 Mood: Remains catatonically excited. Will petition court for involuntary ECT as patient is clearly unable to provide consent at this time. Continue PRN Seroquel and lorazepam. 09/02/17 14:21 Catatonia: remains agitated, disorganized. Will CCM, await hearing for court ordered ECT. 09/07/17 14:38 Catatonia: Remains quite ill. Unable to discuss treatment per previous encounters. No improvement over my absence. Awaiting hearing for COECT. 09/08/17 14:02 Catatonia: Some improvement. Will begin ECT tomorrow. 09/09/17 13:54 Catatonia: No change. Refuses treatment today. I did not receive the copy of the court order until after the encounter with patient. He was returned to the unit and I will work with nursing staff to formulate a plan for pretreatment sedation for Thursday. The records from the [facility] indicate that he responded very well to the first treatment there and became more cooperative. 09/10/17 14:13 Catatonia: No change. We need to reverse this as soon as possible. Will proceed with involuntary treatment tomorrow. Will discuss plan with Nurse and Dr. Greer. 09/11/17 16:08 Catatonia: Unchanged. Started acute course ECT today. Expect rapid recovery. 09/14/17 14:59 Catatonia: Improved despite downturn yesterday. [facility]. Subjective: Pt seen, discussed with staff, chart reviewed. Pt had an "up and down" weekend. Behaviorally stable on Thursday and then quite agitated and irritable on Thursday. Slept less than two hours Thursday night. Came to ECT calmly and cooperatively this morning early. Alert and interactive with no sign of irritability. Compliant with all interventions and instructions. Able to answer questions appropriately. Objective: Vital Signs Temp Pulse Resp BP Pulse Ox 36.3 C 86 15 138/75 H 98 09/14/17 10:00 09/14/17 10:00 09/14/17 08:20 09/14/17 10:00 09/14/17 10:00 MSE: Calm, coop. Affect is blunted, stable, approp. Mood is "good." TP linear , though abbreviated. TC reveals no mention of paranoid or grandiose themes. A &Ox4. - Time Spent With Patient Time Spent With Patient: 35" ICD10 Worksheet Patient Problems: Problems Problem Status Onset Bipolar mood disorder Acute
--- NOTE | 2017-09-14 17:06 | HOSPPROG ---
Hospitalist Progress Note Assessment/Plan: Type 2 DM- some lower BS noted, advised him of different medications and their actions. Recommend continuing januvia and metformin, decrease lantus. He agrees and appreciated education. Follow blood sugars. If ongoing concerns or low levels noted, please feel free to contact hospitalist service. BMP ordered for completeness, normal. Thank you for allowing us to participate in his care. Subjective: Pt requests review of DM meds and blood sugars. Denies light headedness or dizziness. Refused to take metformin or januvia today. Objective: Vital Signs Temp Pulse Resp BP Pulse Ox 97.4 F 86 15 138/75 H 98 09/14/17 10:00 09/14/17 10:00 09/14/17 08:20 09/14/17 10:00 09/14/17 10:00 - Physical Exam Constitutional: no apparent distress, other (cooperative) Cardiovascular: regular rate and rhythym Respiratory: no respiratory distress, no rales or rhonchi, clear to auscultation ICD10 Worksheet Patient Problems: Problems Problem Status Onset Bipolar mood disorder Acute
[2017-09-15] MEDS: INSULIN LISPRO 100 UNIT/1 ML VIAL STANDARD SC SCH ×3 (08:45→19:05)
[2017-09-15] MEDS: metFORMIN HCL 500 MG TAB PO SCH ×2 (08:58→19:04)
[2017-09-15] MEDS: LISINOPRIL 20 MG TAB PO SCH (08:58)
[2017-09-15] MEDS: LORazepam 0.5 MG TAB PO SCH ×3 (08:59→19:05)
[2017-09-15] MEDS: MULTIVITAMINS 1 EACH TAB PO SCH (08:59)
[2017-09-15] MEDS: FOLIC ACID 1 MG TAB PO SCH (08:59)
[2017-09-15] MEDS: amLODIPine BESYLATE 5 MG TAB PO SCH (08:59)
[2017-09-15] MEDS: THIAMINE HCL 100 MG TAB PO SCH (09:00)
[2017-09-15] MEDS: ASPIRIN EC 81 MG TAB PO SCH (09:00)
[2017-09-15] MEDS: INSULIN GLARGINE 100 UNITS/ML UNIT SC SCH (09:01)
--- NOTE | 2017-09-15 16:12 | SOAPPROG ---
SOAP Progress Note Assessment/Plan: Assessment: Plan: 09/01/17 11:04 Mood: Remains catatonically excited. Will petition court for involuntary ECT as patient is clearly unable to provide consent at this time. Continue PRN Seroquel and lorazepam. 09/02/17 14:21 Catatonia: remains agitated, disorganized. Will [facility], await hearing for court ordered ECT. 09/07/17 14:38 Catatonia: Remains quite ill. Unable to discuss treatment per previous encounters. No improvement over my absence. Awaiting hearing for COECT. 09/08/17 14:02 Catatonia: Some improvement. Will begin ECT tomorrow. 09/09/17 13:54 Catatonia: No change. Refuses treatment today. I did not receive the copy of the court order until after the encounter with patient. He was returned to the unit and I will work with nursing staff to formulate a plan for pretreatment sedation for Thursday. The records from the [facility] indicate that he responded very well to the first treatment there and became more cooperative. 09/10/17 14:13 Catatonia: No change. We need to reverse this as soon as possible. Will proceed with involuntary treatment tomorrow. Will discuss plan with Nurse and Dr. Greer. 09/11/17 16:08 Catatonia: Unchanged. Started acute course ECT today. Expect rapid recovery. 09/14/17 14:59 Catatonia: Improved despite downturn yesterday. CCM. 09/15/17 16:12 Catatonia: Remains disorganized. [facility]: ECT. Subjective: Pt seen, discussed with staff. Remains generally disorganized, confused. Sleeping poorly. He is conversant, but without meaningful content. Less paranoid. Objective: Vital Signs Temp Pulse Resp BP Pulse Ox 36.3 C 71 20 145/69 H 96 09/15/17 06:30 09/15/17 08:52 09/15/17 08:52 09/15/17 08:59 09/15/17 08:52 Laboratory Results 09/15/17 05:40 MSE: Calm, coop. Affect is expansive, tearful at times. Mood is not described. TP disorganized. TC reveals no mention of paranoid or grandiose thoughts. - Time Spent With Patient Time Spent With Patient: 15" ICD10 Worksheet Patient Problems: Problems Problem Status Onset Bipolar mood disorder Acute
[2017-09-15] MEDS: traZODone 50 MG TAB PO PRN (23:44)
[2017-09-16] MEDS: LISINOPRIL 20 MG TAB PO SCH (04:18)
[2017-09-16] MEDS: amLODIPine BESYLATE 5 MG TAB PO SCH (04:19)
[2017-09-16] MEDS ORDERED: MIDAZOLAM 2 MG/2 ML VIAL ONE (05:16)
[2017-09-16] MEDS ORDERED: fentaNYL 100 MCG/2 ML INJ ONE (05:16)
[2017-09-16] MEDS ORDERED: GLYCOPYRROLATE 0.2 MG/1 ML VIAL ONE (05:16)
[2017-09-16] MEDS ORDERED: LIDOCAINE 2% 5 ML SDV ONE (05:16)
[2017-09-16] MEDS ORDERED: ONDANSETRON 4 MG/2 ML VIAL ONE (05:17)
[2017-09-16] MEDS ORDERED: ROCURONIUM 50 MG/5 ML VIAL ONE (05:17)
[2017-09-16] MEDS ORDERED: SUCCINYLCHOLINE CHLORIDE 200 MG/10 ML VIAL ONE (05:17)
[2017-09-16] MEDS ORDERED: ETOMIDATE 20 MG/10 ML VIAL ONE (05:17)
[2017-09-16] MEDS ORDERED: ONDANSETRON DISINTEGRATING 4 MG TAB ONE (06:05)
[2017-09-16] MEDS ORDERED: CITRIC ACID/SODIUM CITRATE 30 ML UDCUP ONE (06:05)
[2017-09-16] MEDS ORDERED: CITRIC ACID/SODIUM CITRATE 30 ML UDCUP PO ONE (06:38)
[2017-09-16] MEDS ORDERED: LIDOCAINE 2% 5 ML SDV ID ONE (06:38)
[2017-09-16] MEDS ORDERED: NS 1,000 ML IV ONE (06:38)
[2017-09-16] MEDS ORDERED: ONDANSETRON DISINTEGRATING 4 MG TAB PO ONE (06:38)
[2017-09-16] MEDS ORDERED: ACETAMINOPHEN 325 MG TAB ONE (07:24)
[2017-09-16] MEDS: MULTIVITAMINS 1 EACH TAB PO SCH (08:46)
[2017-09-16] MEDS: FOLIC ACID 1 MG TAB PO SCH (08:46)
[2017-09-16] MEDS: ASPIRIN EC 81 MG TAB PO SCH (08:46)
[2017-09-16] MEDS: LORazepam 0.5 MG TAB PO SCH ×4 (08:46→21:00)
[2017-09-16] MEDS: metFORMIN HCL 500 MG TAB PO SCH ×3 (08:46→21:01)
[2017-09-16] MEDS: THIAMINE HCL 100 MG TAB PO SCH (08:46)
[2017-09-16] MEDS: INSULIN GLARGINE 100 UNITS/ML UNIT SC SCH (08:46)
[2017-09-16] MEDS: INSULIN LISPRO 100 UNIT/1 ML VIAL STANDARD SC SCH ×3 (08:53→19:17)
--- NOTE | 2017-09-16 15:31 | SOAPPROG ---
SOAP Progress Note Assessment/Plan: Assessment: Plan: 09/01/17 11:04 Mood: Remains catatonically excited. Will petition court for involuntary ECT as patient is clearly unable to provide consent at this time. Continue PRN Seroquel and lorazepam. 09/02/17 14:21 Catatonia: remains agitated, disorganized. Will [facility], await hearing for court ordered ECT. 09/07/17 14:38 Catatonia: Remains quite ill. Unable to discuss treatment per previous encounters. No improvement over my absence. Awaiting hearing for COECT. 09/08/17 14:02 Catatonia: Some improvement. Will begin ECT tomorrow. 09/09/17 13:54 Catatonia: No change. Refuses treatment today. I did not receive the copy of the court order until after the encounter with patient. He was returned to the unit and I will work with nursing staff to formulate a plan for pretreatment sedation for Thursday. The records from the [place] [facility] indicate that he responded very well to the first treatment there and became more cooperative. 09/10/17 14:13 Catatonia: No change. We need to reverse this as soon as possible. Will proceed with involuntary treatment tomorrow. Will discuss plan with Nurse and Dr. Greer. 09/11/17 16:08 Catatonia: Unchanged. Started acute course ECT today. Expect rapid recovery. 09/14/17 14:59 Catatonia: Improved despite downturn yesterday. [facility]. 09/15/17 16:12 Catatonia: Remains disorganized. [facility]: ECT. 09/16/17 15:31 Catatonia: Resolving. Much more lucid today. Cannot explain lack of threshold event. Will d/c scheduled lorazepam, increase trazodone at HS for sleep. Will add theophylline for next treatment. Subjective: Pt seen, discussed with staff. Continues to sleep poorly, less than three hours last night again. Lucid and conversant this morning, cooperative with all interventions and treatment. Able to discuss his past, his home, the history of the area in [place] in which he lives. He underwent bilateral ECT at 0.5mS and 70% and then 100%, but had a negligible seizure. No complications. Was not given PM lorazepam. Objective: Vital Signs Temp Pulse Resp BP Pulse Ox 36.3 C 69 15 119/67 97 03/14/18 09:45 09/16/17 09:45 09/16/17 09:45 09/16/17 09:45 09/16/17 09:45 Laboratory Results 09/15/17 05:40 MSE: Calm, coop, conversant. Affect is bright, stable, approp. Mood is "good. " TP generally linear, more so than typical. TC reveals continued mention of "the government" acting against him, though less prominent. A&Ox3. - Time Spent With Patient Time Spent With Patient: 35" ICD10 Worksheet Patient Problems: Problems Problem Status Onset Bipolar mood disorder Acute
[2017-09-16] MEDS: ACETAMINOPHEN 325 MG TAB PO PRN (23:04)
[2017-09-16] MEDS: traZODone 50 MG TAB PO PRN (23:04)
[2017-09-17] MEDS: QUEtiapine FUMARATE 25 MG TAB PO PRN (02:03)
[2017-09-17] MEDS: LORazepam 1 MG TAB PO PRN (02:03)
[2017-09-17] MEDS: INSULIN LISPRO 100 UNIT/1 ML VIAL STANDARD SC SCH ×3 (08:23→19:04)
[2017-09-17] MEDS: MULTIVITAMINS 1 EACH TAB PO SCH (10:41)
[2017-09-17] MEDS: metFORMIN HCL 500 MG TAB PO SCH ×2 (10:42→19:05)
[2017-09-17] MEDS: FOLIC ACID 1 MG TAB PO SCH (10:42)
[2017-09-17] MEDS: LORazepam 0.5 MG TAB PO SCH (10:42)
[2017-09-17] MEDS: THIAMINE HCL 100 MG TAB PO SCH (10:42)
[2017-09-17] MEDS: LISINOPRIL 20 MG TAB PO SCH (10:42)
[2017-09-17] MEDS: ASPIRIN EC 81 MG TAB PO SCH (10:42)
[2017-09-17] MEDS: INSULIN GLARGINE 100 UNITS/ML UNIT SC SCH (10:43)
[2017-09-17] MEDS: amLODIPine BESYLATE 5 MG TAB PO SCH (10:43)
--- NOTE | 2017-09-17 15:54 | SOAPPROG ---
SOAP Progress Note Assessment/Plan: Assessment: Plan: 09/01/17 11:04 Mood: Remains catatonically excited. Will petition court for involuntary ECT as patient is clearly unable to provide consent at this time. Continue PRN Seroquel and lorazepam. 09/02/17 14:21 Catatonia: remains agitated, disorganized. Will [facility], await hearing for court ordered ECT. 09/07/17 14:38 Catatonia: Remains quite ill. Unable to discuss treatment per previous encounters. No improvement over my absence. Awaiting hearing for COECT. 09/08/17 14:02 Catatonia: Some improvement. Will begin ECT tomorrow. 09/09/17 13:54 Catatonia: No change. Refuses treatment today. I did not receive the copy of the court order until after the encounter with patient. He was returned to the unit and I will work with nursing staff to formulate a plan for pretreatment sedation for Thursday. The records from the [facility] indicate that he responded very well to the first treatment there and became more cooperative. 09/10/17 14:13 Catatonia: No change. We need to reverse this as soon as possible. Will proceed with involuntary treatment tomorrow. Will discuss plan with Nurse and Dr. Greer. 09/11/17 16:08 Catatonia: Unchanged. Started acute course ECT today. Expect rapid recovery. 09/14/17 14:59 Catatonia: Improved despite downturn yesterday. CCM. 09/15/17 16:12 Catatonia: Remains disorganized. [facility] inc: ECT. 09/16/17 15:31 Catatonia: Resolving. Much more lucid today. Cannot explain lack of threshold event. Will d/c scheduled lorazepam, increase trazodone at HS for sleep. Will add theophylline for next treatment. 09/17/17 15:54 Catatonia: Remains quite ill. Will [facility]. Continue to hold antipsychotic medications due to catatonia. Hope to see symptomatic relief with ECT. Will [facility]. Increase trazodone at HS for sleep, d/c scheduled lorazepam, add theophylline. Subjective: Pt seen, discussed with staff. Remains generally agitated, hyperactive, disorganized. Continues to sleep poorly. Less irritable, more conversant. Has been barricading his door with furniture due to fear that someone is going to harm him. Objective: Vital Signs Temp Pulse Resp BP Pulse Ox 36.9 C 78 16 163/75 H 96 09/17/17 06:39 09/17/17 13:57 09/17/17 13:57 09/17/17 13:57 09/17/17 13:57 Laboratory Results 09/15/17 05:40 MSE: Moderately agitated, coop., though inattentive to conversation or interview. Affect is bright, stable, approp. Mood is "good." TP disorganized. TC reveals continued paranoid. - Time Spent With Patient Time Spent With Patient: 15" ICD10 Worksheet Patient Problems: Problems Problem Status Onset Bipolar mood disorder Acute
[2017-09-17] MEDS: traZODone 50 MG TAB PO SCH ×2 (20:37→23:44)
[2017-09-17] MEDS ORDERED: traZODone 50 MG TAB PO SCH (21:00)
[2017-09-18] MEDS ORDERED: ONDANSETRON DISINTEGRATING 4 MG TAB PO ONE (04:00)
[2017-09-18] MEDS ORDERED: LIDOCAINE 2% 5 ML SDV ID ONE (04:00)
[2017-09-18] MEDS ORDERED: CITRIC ACID/SODIUM CITRATE 30 ML UDCUP PO ONE (04:00)
[2017-09-18] MEDS ORDERED: NS 1,000 ML IV ONE (04:00)
[2017-09-18] MEDS ORDERED: THEOPHYLLINE ORAL SOLUTION 80 MG/15 ML UDCUP PO ONE (04:00)
[2017-09-18] MEDS: LISINOPRIL 20 MG TAB PO SCH (05:25)
[2017-09-18] MEDS: amLODIPine BESYLATE 5 MG TAB PO SCH (05:25)
[2017-09-18] MEDS ORDERED: ONDANSETRON 4 MG/2 ML VIAL ONE (05:28)
[2017-09-18] MEDS ORDERED: fentaNYL 100 MCG/2 ML INJ ONE (05:28)
[2017-09-18] MEDS ORDERED: MIDAZOLAM 2 MG/2 ML VIAL ONE (05:28)
[2017-09-18] MEDS ORDERED: SUCCINYLCHOLINE CHLORIDE 200 MG/10 ML VIAL ONE (05:29)
[2017-09-18] MEDS ORDERED: LABETALOL HCL 5 MG/ML 20 ML MDV ONE (05:29)
[2017-09-18] MEDS ORDERED: ETOMIDATE 20 MG/10 ML VIAL ONE (05:29)
[2017-09-18] MEDS ORDERED: GLYCOPYRROLATE 0.2 MG/1 ML VIAL ONE (05:29)
[2017-09-18] MEDS ORDERED: ROCURONIUM 50 MG/5 ML VIAL ONE (05:29)
[2017-09-18] MEDS ORDERED: ONDANSETRON DISINTEGRATING 4 MG TAB ONE (07:37)
[2017-09-18] MEDS ORDERED: CITRIC ACID/SODIUM CITRATE 30 ML UDCUP ONE (07:37)
[2017-09-18] MEDS: INSULIN LISPRO 100 UNIT/1 ML VIAL STANDARD SC SCH ×3 (10:34→18:43)
[2017-09-18] MEDS: FOLIC ACID 1 MG TAB PO SCH (10:38)
[2017-09-18] MEDS: THIAMINE HCL 100 MG TAB PO SCH (10:38)
[2017-09-18] MEDS: MULTIVITAMINS 1 EACH TAB PO SCH (10:38)
[2017-09-18] MEDS: ASPIRIN EC 81 MG TAB PO SCH (10:38)
[2017-09-18] MEDS: INSULIN GLARGINE 100 UNITS/ML UNIT SC SCH (10:40)
[2017-09-18] MEDS: metFORMIN HCL 500 MG TAB PO SCH ×2 (10:49→18:43)
--- NOTE | 2017-09-18 14:17 | SOAPPROG ---
SOAP Progress Note Assessment/Plan: Assessment: Plan: 09/01/17 11:04 Mood: Remains catatonically excited. Will petition court for involuntary ECT as patient is clearly unable to provide consent at this time. Continue PRN Seroquel and lorazepam. 09/02/17 14:21 Catatonia: remains agitated, disorganized. Will [facility], await hearing for court ordered ECT. 09/07/17 14:38 Catatonia: Remains quite ill. Unable to discuss treatment per previous encounters. No improvement over my absence. Awaiting hearing for COECT. 09/08/17 14:02 Catatonia: Some improvement. Will begin ECT tomorrow. 09/09/17 13:54 Catatonia: No change. Refuses treatment today. I did not receive the copy of the court order until after the encounter with patient. He was returned to the unit and I will work with nursing staff to formulate a plan for pretreatment sedation for Thursday. The records from the [facility] indicate that he responded very well to the first treatment there and became more cooperative. 09/10/17 14:13 Catatonia: No change. We need to reverse this as soon as possible. Will proceed with involuntary treatment tomorrow. Will discuss plan with Nurse and Dr. Greer. 09/11/17 16:08 Catatonia: Unchanged. Started acute course ECT today. Expect rapid recovery. 09/14/17 14:59 Catatonia: Improved despite downturn yesterday. CCM. 09/15/17 16:12 Catatonia: Remains disorganized. [facility]: ECT. 09/16/17 15:31 Catatonia: Resolving. Much more lucid today. Cannot explain lack of threshold event. Will d/c scheduled lorazepam, increase trazodone at HS for sleep. Will add theophylline for next treatment. 09/17/17 15:54 Catatonia: Remains quite ill. Will [facility]. Continue to hold antipsychotic medications due to catatonia. Hope to see symptomatic relief with ECT. Will [facility]. Increase trazodone at HS for sleep, d/c scheduled lorazepam, add theophylline. 09/18/17 14:13 Catatonia: Slow improvement. MMSE=21 today, more lucid. Needs to sleep. Want to avoid ANY anticholinergic inc: any tertiary amine tricyclics. Also want to generally limit total benzodiazepine burden so not to interfere with ECT. Will therefore use zolpidem and ciproheptadine in combination. This is discussed with patient. Subjective: Pt seen, discussed with staff. Did not sleep last night despite increased dose of trazodone. Remains generally disorganized, hyperactive. Lots of non-goal directed activity. Cannot calm himself. Initially refused ECT this morning, but later acquiesced. Voiced no specific objection except some paranoia, stating, "I'm not letting you get away with this." Underwent bilateral ECT with no complications. Had another very low amplitude seizure, but more adequate in duration. Objective: Vital Signs Temp Pulse Resp BP Pulse Ox 36.2 C 70 16 105/55 L 96 09/18/17 10:40 09/18/17 10:40 09/18/17 10:40 09/18/17 10:40 09/18/17 10:40 Laboratory Results 09/15/17 05:40 - Time Spent With Patient Time Spent With Patient: 35" ICD10 Worksheet Patient Problems: Problems Problem Status Onset Bipolar mood disorder Acute
[2017-09-18] MEDS: CYPROHEPTADINE HCL 4 MG TAB PO SCH (19:23)
[2017-09-19] MEDS: MULTIVITAMINS 1 EACH TAB PO SCH (08:42)
[2017-09-19] MEDS: metFORMIN HCL 500 MG TAB PO SCH ×2 (08:42→18:33)
[2017-09-19] MEDS: ASPIRIN EC 81 MG TAB PO SCH (08:42)
[2017-09-19] MEDS: amLODIPine BESYLATE 5 MG TAB PO SCH (08:42)
[2017-09-19] MEDS: FOLIC ACID 1 MG TAB PO SCH (08:42)
[2017-09-19] MEDS: INSULIN GLARGINE 100 UNITS/ML UNIT SC SCH (08:43)
[2017-09-19] MEDS: LISINOPRIL 20 MG TAB PO SCH (08:43)
[2017-09-19] MEDS: INSULIN LISPRO 100 UNIT/1 ML VIAL STANDARD SC SCH ×3 (09:12→18:04)
[2017-09-19] MEDS: CYPROHEPTADINE HCL 4 MG TAB PO SCH ×2 (21:21→22:05)
[2017-09-19] MEDS: ACETAMINOPHEN 325 MG TAB PO PRN (21:49)
[2017-09-20] MEDS: CYPROHEPTADINE HCL 4 MG TAB PO SCH ×2 (00:04→21:11)
[2017-09-20] MEDS: ZOLPIDEM TARTRATE 5 MG TAB PO PRN (00:07)
[2017-09-20] MEDS: metFORMIN HCL 500 MG TAB PO SCH ×3 (08:19→18:00)
[2017-09-20] MEDS: INSULIN GLARGINE 100 UNITS/ML UNIT SC SCH (08:19)
[2017-09-20] MEDS: FOLIC ACID 1 MG TAB PO SCH (08:19)
[2017-09-20] MEDS: MULTIVITAMINS 1 EACH TAB PO SCH (08:19)
[2017-09-20] MEDS: LISINOPRIL 20 MG TAB PO SCH (08:19)
[2017-09-20] MEDS: ASPIRIN EC 81 MG TAB PO SCH (08:19)
[2017-09-20] MEDS: INSULIN LISPRO 100 UNIT/1 ML VIAL STANDARD SC SCH ×4 (08:21→17:59)
[2017-09-20] MEDS: amLODIPine BESYLATE 5 MG TAB PO SCH (09:03)
--- NOTE | 2017-09-20 09:19 | SOAPPROG ---
SOAP Progress Note Assessment/Plan: Assessment: 72yo CM with excited catatonia, undergoing c.o. ECT 09/19/17 16:13 per staff, finally slept 5hr last night. overall has had slow but steady improvement since ECT started, and with decreased paranoia. on eval, pt irritable with hostile tone of voice, complaining about trying to sleep during day and peer walking aguiar talking loudly on phone. told MD to read the chart when asked questions, and angrily tossed his shoes into hallway. refused interview. denied any current physical c/o, although c/o not being able to nap today. has had no attempts to harm self or others. has been trying to avoid peers with whom he feels annoyed. PLAN: cont with ECT cont other current meds as Rxd Objective: Vital Signs Temp Pulse Resp BP Pulse Ox 36.7 C 73 16 164/79 H 96 09/20/17 00:30 09/20/17 00:30 09/20/17 00:30 09/20/17 00:30 09/19/17 16:00 Laboratory Results 09/15/17 05:40 - Time Spent With Patient Time Spent With Patient: <15min - Pending Discharge Pending Discharge Within 24 Hours: No Pending Discharge Within 48 Hours: No ICD10 Worksheet Patient Problems: Problems Problem Status Onset Bipolar mood disorder Acute
--- NOTE | 2017-09-20 11:08 | SOAPPROG ---
SOAP Progress Note Assessment/Plan: Assessment: 72yo CM with excited catatonia, undergoing c.o. ECT 09/19/17 16:13 per staff, finally slept 5hr last night. overall has had slow but steady improvement since ECT started, and with decreased paranoia. on eval, pt irritable with hostile tone of voice, complaining about trying to sleep during day and peer walking aguiar talking loudly on phone. told MD to read the chart when asked questions, and angrily tossed his shoes into hallway. refused interview. denied any current physical c/o, although c/o not being able to nap today. has had no attempts to harm self or others. has been trying to avoid peers with whom he feels annoyed. PLAN: cont with ECT cont other current meds as Rxd 09/20/17 11:06 per staff, slept only 2hr. even after took ambien 10mg and cyproheptadine 4mg last night. c/o feeling harassed by manic peer whom he plans on "staying away from" today more engaged on interview today. good eye contact. "I'm ready to be beamed up." states "I am being taken advantage of" by other patients on unit. Gives examples - states other patients "block me from leaving my room", and "they are profiteers". "I'm not sure about the [facility] mandi, he looks protective." Feels staff are helpful. good eye contact, nml speech rate/vol. smiling intermittently but when asked if feels such smiling feels involuntary, he agreed. mood "annoyed" also stating he "worries about worrying". affect somewhat irritable. +paranoid, miriam about peers. denied any ah/vh, did not appear RIS. i/j impaired to poor. bothered with orientation questions, initially gives poor effort "I don't know" but then knew September, and initially guessed 2013 from multiple choice. Denied physical complaints. PLAN: cont with ECT cont other current meds as Rxd monitor sleep. offer prns as available. incr sleep hygiene (discourage daytime naps) Objective: Vital Signs Temp Pulse Resp BP Pulse Ox 36.7 C 73 16 164/79 H 96 09/20/17 00:30 09/20/17 00:30 09/20/17 00:30 09/20/17 00:30 09/19/17 16:00 Laboratory Results 09/15/17 05:40 - Time Spent With Patient Time Spent With Patient: 20min - Pending Discharge Pending Discharge Within 24 Hours: No Pending Discharge Within 48 Hours: No ICD10 Worksheet Patient Problems: Problems Problem Status Onset Bipolar mood disorder Acute
[2017-09-20] MEDS: LORazepam 1 MG TAB PO PRN ×2 (12:01→16:18)
[2017-09-21] MEDS ORDERED: NS 1,000 ML IV PRN (04:00)
[2017-09-21] MEDS ORDERED: LIDOCAINE 2% 5 ML SDV ID PRN (04:00)
[2017-09-21] MEDS ORDERED: CITRIC ACID/SODIUM CITRATE 30 ML UDCUP PO PRN (04:00)
[2017-09-21] MEDS ORDERED: ONDANSETRON DISINTEGRATING 4 MG TAB PO PRN (04:00)
[2017-09-21] MEDS: LISINOPRIL 20 MG TAB PO SCH ×3 (05:51→06:49)
[2017-09-21] MEDS: amLODIPine BESYLATE 5 MG TAB PO SCH ×4 (05:52→09:38)
[2017-09-21] MEDS: ACETAMINOPHEN 325 MG TAB PO PRN ×3 (05:53→19:07)
[2017-09-21] MEDS: THEOPHYLLINE ORAL SOLUTION 80 MG/15 ML UDCUP PO ONE ×2 (05:53→06:32)
[2017-09-21] MEDS ORDERED: ETOMIDATE 20 MG/10 ML VIAL ONE (06:08)
[2017-09-21] MEDS ORDERED: ONDANSETRON 4 MG/2 ML VIAL ONE (06:08)
[2017-09-21] MEDS ORDERED: MIDAZOLAM 2 MG/2 ML VIAL ONE (06:08)
[2017-09-21] MEDS ORDERED: LIDOCAINE 2% 5 ML SDV ONE (06:08)
[2017-09-21] MEDS ORDERED: GLYCOPYRROLATE 0.2 MG/1 ML VIAL ONE (06:08)
[2017-09-21] MEDS ORDERED: fentaNYL 100 MCG/2 ML INJ ONE (06:08)
[2017-09-21] MEDS ORDERED: SUCCINYLCHOLINE CHLORIDE 200 MG/10 ML VIAL ONE (06:09)
[2017-09-21] MEDS ORDERED: ROCURONIUM 50 MG/5 ML VIAL ONE (06:09)
[2017-09-21] MEDS ORDERED: ONDANSETRON DISINTEGRATING 4 MG TAB ONE (07:19)
[2017-09-21] MEDS ORDERED: CITRIC ACID/SODIUM CITRATE 30 ML UDCUP ONE (07:19)
--- NOTE | 2017-09-21 07:54 | PDHPUP ---
History & Physical Update H&P update statement: This history and physical update is based on an assessment of the patient which was completed after admission or registration (within 24 hours), but prior to the surgery/procedure. H&P update: H&P reviewed & patient examined, no change in patient's condition since H&P completed
--- NOTE | 2017-09-21 08:07 | PDECTPN ---
ECT Progress Note Patient Problems: Problems Problem Status Onset Code Bipolar mood disorder Acute F31.9 Date: 09/21/17 ECT provider: Tim Burciaga Stimulus dose (%): 80 Pulse width: 0.5 ECT EMG (sec): 49 ECT EEG (sec): 85 ECT treatment type: bilateral Next ECT date: 09/23/17 Home medications: Aspirin EC [Aspirin EC 81 mg (*)] 81 mg PO DAILY 08/27/17 [Last Taken Unknown] Atorvastatin Calcium [Lipitor 40 mg (*)] 40 mg PO HS 08/27/17 [Last Taken Unknown] Insulin Glargine [Lantus 100 UNITS/ML (*)] 40 units SC DAILY 08/27/17 [Last Taken Unknown] Lisinopril [Zestril 20 mg (*)] 20 mg PO DAILY 08/27/17 [Last Taken Unknown] Saxagliptin HCl [Onglyza] 2.5 mg PO DAILY 08/27/17 [Last Taken Unknown] amLODIPine BESYLATE [Norvasc 5 mg (*)] 5 mg PO DAILY 08/27/17 [Last Taken Unknown] metFORMIN HCL [Glucophage 500 mg (*)] 1,000 mg PO BIDMEAL 08/27/17 [Last Taken Unknown] traZODone [traZODONE 50MG (*)] 50 mg PO HS PRN 08/27/17 [Last Taken Unknown] Medication review: completed Current treatment plan: acute phase Treatment plan frequency: 3 times per week ECT narrative: Pt seen, discussed with staff, chart reviewed. Continues to sleep poorly. Remains disorganized, paranoid. Antagonistic, requiring show of force and hands on to start IV. Underwent bilateral ECT without complication.
[2017-09-21] MEDS ORDERED: ACETAMINOPHEN 325 MG TAB ONE (08:41)
[2017-09-21] MEDS: FOLIC ACID 1 MG TAB PO SCH (09:38)
[2017-09-21] MEDS: MULTIVITAMINS 1 EACH TAB PO SCH (09:38)
[2017-09-21] MEDS: INSULIN GLARGINE 100 UNITS/ML UNIT SC SCH (09:38)
[2017-09-21] MEDS: metFORMIN HCL 500 MG TAB PO SCH ×2 (09:38→19:10)
[2017-09-21] MEDS: ASPIRIN EC 81 MG TAB PO SCH (09:39)
[2017-09-21] MEDS: INSULIN LISPRO 100 UNIT/1 ML VIAL STANDARD SC SCH ×3 (10:44→19:10)
[2017-09-21] MEDS: CYPROHEPTADINE HCL 4 MG TAB PO SCH (19:08)
[2017-09-21] MEDS ORDERED: QUEtiapine FUMARATE 200 MG TAB PO SCH (22:15)
[2017-09-22] MEDS: LORazepam 1 MG TAB PO PRN (01:33)
[2017-09-22] MEDS: ZOLPIDEM TARTRATE 5 MG TAB PO PRN (01:33)
[2017-09-22] MEDS: INSULIN LISPRO 100 UNIT/1 ML VIAL STANDARD SC SCH ×3 (08:08→18:55)
--- NOTE | 2017-09-22 08:20 | SOAPPROG ---
SOAP Progress Note Assessment/Plan: Assessment: Plan: 09/01/17 11:04 Mood: Remains catatonically excited. Will petition court for involuntary ECT as patient is clearly unable to provide consent at this time. Continue PRN Seroquel and lorazepam. 09/02/17 14:21 Catatonia: remains agitated, disorganized. [place] [facility] await hearing for court ordered ECT. 09/07/17 14:38 Catatonia: Remains quite ill. Unable to discuss treatment per previous encounters. No improvement over my absence. Awaiting hearing for [facility]. 09/08/17 14:02 Catatonia: Some improvement. Will begin ECT tomorrow. 09/09/17 13:54 Catatonia: No change. Refuses treatment today. I did not receive the copy of the court order until after the encounter with patient. He was returned to the unit and I will work with nursing staff to formulate a plan for pretreatment sedation for Thursday. The records from the [facility] indicate that he responded very well to the first treatment there and became more cooperative. 09/10/17 14:13 Catatonia: No change. We need to reverse this as soon as possible. Will proceed with involuntary treatment tomorrow. Will discuss plan with Nurse and Dr. Greer. 09/11/17 16:08 Catatonia: Unchanged. Started acute course ECT today. Expect rapid recovery. 09/14/17 14:59 Catatonia: Improved despite downturn yesterday. CCM. 09/15/17 16:12 Catatonia: Remains disorganized. [facility]. 09/16/17 15:31 Catatonia: Resolving. Much more lucid today. Cannot explain lack of threshold event. Will d/c scheduled lorazepam, increase trazodone at HS for sleep. Will add theophylline for next treatment. 09/17/17 15:54 Catatonia: Remains quite ill. Will [facility]. Continue to hold antipsychotic medications due to catatonia. Hope to see symptomatic relief with ECT. [place] [facility]. Increase trazodone at HS for sleep, d/c scheduled lorazepam, add theophylline. 09/18/17 14:13 Catatonia: Slow improvement. MMSE=21 today, more lucid. Needs to sleep. Want to avoid ANY anticholinergic inc: any tertiary amine tricyclics. Also want to generally limit total benzodiazepine burden so not to interfere with ECT. Will therefore use zolpidem and ciproheptadine in combination. This is discussed with patient. 09/22/17 08:19 Catatonia: Remains agitated. Insomnia persists. Will decrease SQL dose, continue ECT. Subjective: Pt seen, discussed with staff. He slept only three hours last night with SQL. He was unsteady and agitated. Stayed out by the nurses' station. This morning he is irritable, hostile at times. RN put him on assault awareness. He is angry with me for "overdosing me" with SQL. I replied to pt's daughter's email as follows: Good morning. I can understand your feelings about your father's ongoing difficulties. I too would have liked to see a more rapid response to treatment as he reportedly showed in [place]. He has improved in some ways, such as his orientation and processing. He is able to have meaningful conversations now and is not as generally confused. He continues to be paranoid, however, barricading thedoor to his room and has been more irritable with staff over the past few days. He was quite irritable with staff in ECT yesterday morning. One of the biggest things is his continued insomnia. I have tried numerous things, but he just doesn't sleep more than three hours per night. He seems to actively resist sleep. Last night I gave him a dose of Seroquel and he slept for about three hours and then was up walking and talking constantly and refused to lay back down. He was somewhat unsteady and the nurses kept him out by the desk to keep an eye on him. This morning he is irritable. He is angry with me stating, "You overdosed me." My plan is to continue ECT. I still believe it will help, but we need to get over the hump. Once we do, I expect to see the irritability and sleep normalize. I would hope to see that this week. In regards to placement, he will likely need some form of support such as assisted living. If he stays in this community, I will help make outpatient arrangements with an appropriate psychiatrist. Hope you are doing OK. I wish I had better news, but am still hopeful he will get back out of this. It is normal for subsequent episodes like this to be more resistant to treatment than previous episodes. Take care, Dr. Burciaga Objective: Vital Signs Temp Pulse Resp BP Pulse Ox 36.6 C 86 14 106/64 94 09/21/17 11:00 09/22/17 00:30 09/22/17 00:30 09/22/17 00:30 09/22/17 00:30 Laboratory Results 09/15/17 05:40 09/21/17 09/22/17 09/23/17 05:59 05:59 05:59 Intake Total 1000 Balance 1000 MSE: Sitting in day room, trying to figure out TV remote. Affect is irritable. Mood is "bad." TP disorganized. TC reveals paranoia. - Time Spent With Patient Time Spent With Patient: 25" ICD10 Worksheet Patient Problems: Problems Problem Status Onset Bipolar mood disorder Acute
[2017-09-22] MEDS: FOLIC ACID 1 MG TAB PO SCH (09:04)
[2017-09-22] MEDS: LISINOPRIL 20 MG TAB PO SCH (09:04)
[2017-09-22] MEDS: metFORMIN HCL 500 MG TAB PO SCH ×2 (09:04→18:44)
[2017-09-22] MEDS: MULTIVITAMINS 1 EACH TAB PO SCH (09:04)
[2017-09-22] MEDS: ASPIRIN EC 81 MG TAB PO SCH (09:04)
[2017-09-22] MEDS: INSULIN GLARGINE 100 UNITS/ML UNIT SC SCH (09:07)
[2017-09-22] MEDS: QUEtiapine FUMARATE 200 MG TAB PO SCH (22:14)
[2017-09-23] MEDS ORDERED: NS 1,000 ML IV PRN (05:00)
[2017-09-23] MEDS ORDERED: LIDOCAINE 2% 5 ML SDV ID PRN (05:00)
[2017-09-23] MEDS ORDERED: ONDANSETRON DISINTEGRATING 4 MG TAB PO PRN (05:00)
[2017-09-23] MEDS ORDERED: CITRIC ACID/SODIUM CITRATE 30 ML UDCUP PO PRN (05:00)
[2017-09-23] MEDS ORDERED: MIDAZOLAM 2 MG/2 ML VIAL ONE (05:56)
[2017-09-23] MEDS ORDERED: ONDANSETRON 4 MG/2 ML VIAL ONE (05:56)
[2017-09-23] MEDS ORDERED: fentaNYL 100 MCG/2 ML INJ ONE (05:56)
[2017-09-23] MEDS ORDERED: GLYCOPYRROLATE 0.2 MG/1 ML VIAL ONE (05:56)
[2017-09-23] MEDS ORDERED: SUCCINYLCHOLINE CHLORIDE 200 MG/10 ML VIAL ONE (05:57)
[2017-09-23] MEDS ORDERED: ETOMIDATE 20 MG/10 ML VIAL ONE (05:57)
[2017-09-23] MEDS ORDERED: ROCURONIUM 50 MG/5 ML VIAL ONE (05:57)
[2017-09-23] MEDS ORDERED: LABETALOL HCL 5 MG/ML 20 ML MDV ONE (05:57)
[2017-09-23] MEDS ORDERED: PROPOFOL 200 MG/20 ML VIAL ONE (05:57)
[2017-09-23] MEDS ORDERED: CITRIC ACID/SODIUM CITRATE 30 ML UDCUP ONE (06:54)
[2017-09-23] MEDS ORDERED: ONDANSETRON DISINTEGRATING 4 MG TAB ONE (06:54)
[2017-09-23] MEDS: INSULIN LISPRO 100 UNIT/1 ML VIAL STANDARD SC SCH ×3 (07:31→17:26)
--- NOTE | 2017-09-23 07:48 | PDANEPAE ---
ECT Pre Anesthetic Evaluation Allergies/Adverse Reactions: No Known Drug Allergies Allergy (Verified 08/27/17 09:12) Patient ID confirmed: Yes H&P reviewed: Yes Pre-anesthetic history reviewed: Yes Heart: regular rate and rhythym, no murmur, rub, or gallop Lungs: no respiratory distress, clear to auscultation Mallampati Score: Class 2 ASA Status: II Home Medications: Aspirin EC [Aspirin EC 81 mg (*)] 81 mg PO DAILY 08/27/17 [Last Taken Unknown] Atorvastatin Calcium [Lipitor 40 mg (*)] 40 mg PO HS 08/27/17 [Last Taken Unknown] Insulin Glargine [Lantus 100 UNITS/ML (*)] 40 units SC DAILY 08/27/17 [Last Taken Unknown] Lisinopril [Zestril 20 mg (*)] 20 mg PO DAILY 08/27/17 [Last Taken Unknown] Saxagliptin HCl [Onglyza] 2.5 mg PO DAILY 08/27/17 [Last Taken Unknown] amLODIPine BESYLATE [Norvasc 5 mg (*)] 5 mg PO DAILY 08/27/17 [Last Taken Unknown] metFORMIN HCL [Glucophage 500 mg (*)] 1,000 mg PO BIDMEAL 08/27/17 [Last Taken Unknown] traZODone [traZODONE 50MG (*)] 50 mg PO HS PRN 08/27/17 [Last Taken Unknown] Medication review: completed Patient interviewed: Yes Patient examined: Yes Anesthetic plan discussed with patient: Yes Anesthetic risks discussed with patient: Yes ECT Pre-Anesthetic History - Height & Weight Height: 179.07 cm Weight: 80.694 kg BMI: 25.18 - Tobacco/Alcohol/Drug Use Smoking Status: Never smoked Alcohol Use: No - Pulmonary History Hx Oxygen in Use at Home: No - Endocrine History Hx Diabetes: Yes - Opthalmic History Visual Assistive Devices: None
--- NOTE | 2017-09-23 07:50 | PDECTPN ---
ECT Progress Note Patient Problems: Problems Problem Status Onset Code Bipolar mood disorder Acute F31.9 Date: 09/23/17 Treatment#: 6 ECT provider: Tim Burciaga Anesthesia: Jose Alberto Greer Stimulus dose (%): 85 Pulse width: 0.5 ECT EMG (sec): 0 ECT EEG (sec): 25 ECT treatment type: bilateral QIDS-SR, QIDS-SR question #12 answer, MMSE review: completed Next ECT date: 09/25/17 Next ECT time: 06:30 Home medications: Aspirin EC [Aspirin EC 81 mg (*)] 81 mg PO DAILY 08/27/17 [Last Taken Unknown] Atorvastatin Calcium [Lipitor 40 mg (*)] 40 mg PO HS 08/27/17 [Last Taken Unknown] Insulin Glargine [Lantus 100 UNITS/ML (*)] 40 units SC DAILY 08/27/17 [Last Taken Unknown] Lisinopril [Zestril 20 mg (*)] 20 mg PO DAILY 08/27/17 [Last Taken Unknown] Saxagliptin HCl [Onglyza] 2.5 mg PO DAILY 08/27/17 [Last Taken Unknown] amLODIPine BESYLATE [Norvasc 5 mg (*)] 5 mg PO DAILY 08/27/17 [Last Taken Unknown] metFORMIN HCL [Glucophage 500 mg (*)] 1,000 mg PO BIDMEAL 08/27/17 [Last Taken Unknown] traZODone [traZODONE 50MG (*)] 50 mg PO HS PRN 08/27/17 [Last Taken Unknown] Current treatment plan: acute phase Treatment plan frequency: 3 times per week ECT narrative: Pt seen, discussed with staff, chart reviewed. Slept better last night. Much calmer and more cooperative today. Offers no c/o or objection to treatment. Underwent bilateral ECT without complication.
[2017-09-23] MEDS ORDERED: LABETALOL HCL 5 MG/ML 20 ML MDV IVP ONE (08:07)
[2017-09-23] MEDS: ASPIRIN EC 81 MG TAB PO SCH (09:01)
[2017-09-23] MEDS: amLODIPine BESYLATE 5 MG TAB PO SCH (09:01)
[2017-09-23] MEDS: MULTIVITAMINS 1 EACH TAB PO SCH (09:01)
[2017-09-23] MEDS: metFORMIN HCL 500 MG TAB PO SCH ×2 (09:01→17:28)
[2017-09-23] MEDS: LISINOPRIL 20 MG TAB PO SCH (09:01)
[2017-09-23] MEDS: FOLIC ACID 1 MG TAB PO SCH (09:01)
[2017-09-23] MEDS: INSULIN GLARGINE 100 UNITS/ML UNIT SC SCH (09:01)
[2017-09-23] MEDS: QUEtiapine FUMARATE 200 MG TAB PO SCH (20:49)
[2017-09-23] MEDS: MAG HYDROX/AL HYDROX/SIMETH 30 ML UDCUP PO PRN (22:11)
[2017-09-24] MEDS: INSULIN GLARGINE 100 UNITS/ML UNIT SC SCH (09:00)
[2017-09-24] MEDS: LISINOPRIL 20 MG TAB PO SCH (09:05)
[2017-09-24] MEDS: metFORMIN HCL 500 MG TAB PO SCH ×2 (09:06→17:10)
[2017-09-24] MEDS: ASPIRIN EC 81 MG TAB PO SCH (09:07)
[2017-09-24] MEDS: amLODIPine BESYLATE 5 MG TAB PO SCH (09:07)
[2017-09-24] MEDS: MULTIVITAMINS 1 EACH TAB PO SCH (09:07)
[2017-09-24] MEDS: FOLIC ACID 1 MG TAB PO SCH (09:08)
[2017-09-24] MEDS: INSULIN LISPRO 100 UNIT/1 ML VIAL STANDARD SC SCH ×3 (09:28→17:11)
[2017-09-24] MEDS: QUEtiapine FUMARATE 200 MG TAB PO SCH ×2 (20:35→21:05)
[2017-09-24] MEDS: MAG HYDROX/AL HYDROX/SIMETH 30 ML UDCUP PO PRN (22:12)
[2017-09-25] MEDS ORDERED: THEOPHYLLINE ORAL SOLUTION 80 MG/15 ML UDCUP PO ONE (04:30)
[2017-09-25] MEDS: LISINOPRIL 20 MG TAB PO SCH (04:39)
[2017-09-25] MEDS: amLODIPine BESYLATE 5 MG TAB PO SCH (04:40)
[2017-09-25] MEDS ORDERED: fentaNYL 100 MCG/2 ML INJ ONE (05:05)
[2017-09-25] MEDS ORDERED: ONDANSETRON 4 MG/2 ML VIAL ONE (05:05)
[2017-09-25] MEDS ORDERED: LIDOCAINE 2% 5 ML SDV ONE (05:05)
[2017-09-25] MEDS ORDERED: MIDAZOLAM 2 MG/2 ML VIAL ONE (05:05)
[2017-09-25] MEDS ORDERED: ROCURONIUM 50 MG/5 ML VIAL ONE (05:06)
[2017-09-25] MEDS ORDERED: LABETALOL HCL 5 MG/ML 20 ML MDV ONE (05:06)
[2017-09-25] MEDS ORDERED: ETOMIDATE 20 MG/10 ML VIAL ONE (05:06)
[2017-09-25] MEDS ORDERED: GLYCOPYRROLATE 0.2 MG/1 ML VIAL ONE (05:06)
[2017-09-25] MEDS ORDERED: SUCCINYLCHOLINE CHLORIDE 200 MG/10 ML VIAL ONE (05:06)
[2017-09-25] MEDS ORDERED: ONDANSETRON DISINTEGRATING 4 MG TAB ONE (06:20)
[2017-09-25] MEDS ORDERED: CITRIC ACID/SODIUM CITRATE 30 ML UDCUP ONE (06:20)
[2017-09-25] MEDS ORDERED: ONDANSETRON DISINTEGRATING 4 MG TAB PO PRN (06:39)
[2017-09-25] MEDS ORDERED: NS 1,000 ML IV PRN (06:39)
[2017-09-25] MEDS ORDERED: CITRIC ACID/SODIUM CITRATE 30 ML UDCUP PO PRN (06:39)
--- NOTE | 2017-09-25 06:47 | PDECTPN ---
ECT Progress Note Patient Problems: Problems Problem Status Onset Code Bipolar mood disorder Acute F31.9 Date: 09/25/17 ECT provider: Tim Burciaga Anesthesia: Jose Alberto Greer Stimulus dose (%): 90 Pulse width: 0.5 ECT EMG (sec): 53 ECT EEG (sec): 72 ECT treatment type: bilateral MMSE Total Score (Max = 21): 19 Patient refused QIDS-SR & MMSE: Yes Next ECT date: 09/28/17 Next ECT time: 07:45 Home medications: Aspirin EC [Aspirin EC 81 mg (*)] 81 mg PO DAILY 08/27/17 [Last Taken Unknown] Atorvastatin Calcium [Lipitor 40 mg (*)] 40 mg PO HS 08/27/17 [Last Taken Unknown] Insulin Glargine [Lantus 100 UNITS/ML (*)] 40 units SC DAILY 08/27/17 [Last Taken Unknown] Lisinopril [Zestril 20 mg (*)] 20 mg PO DAILY 08/27/17 [Last Taken Unknown] Saxagliptin HCl [Onglyza] 2.5 mg PO DAILY 08/27/17 [Last Taken Unknown] amLODIPine BESYLATE [Norvasc 5 mg (*)] 5 mg PO DAILY 08/27/17 [Last Taken Unknown] metFORMIN HCL [Glucophage 500 mg (*)] 1,000 mg PO BIDMEAL 08/27/17 [Last Taken Unknown] traZODone [traZODONE 50MG (*)] 50 mg PO HS PRN 08/27/17 [Last Taken Unknown] Medication review: completed Current treatment plan: acute phase Treatment plan frequency: 3 times per week ECT narrative: Pt presents for continued acute course ECT. Slept much better for two nights, but was up most of last night. Continues to wax and wane, becoming more paranoid at times, appropriately conversant at others. Oppositional but not hostile this morning. Refused theophylline. Will consider addition of antipsychotic now that the catatonic aspect of pt's illness is improving and the psychosis remains the primary management issue.
--- NOTE | 2017-09-25 07:01 | POSTANESTH ---
Post Anesthetic Evaluation Cardiovascular Status: Normal, Stable Respiratory Status: Normal, Stable, Requires Airway Assist Level of Consciousness/Mental Status: Unconscious Pain Control: Adequate, Prn Tx Ordered Nausea/Vomiting Control: Adequate, Prn Tx Ordered
[2017-09-25] MEDS: ACETAMINOPHEN 325 MG TAB PO PRN (08:44)
[2017-09-25] MEDS: MULTIVITAMINS 1 EACH TAB PO SCH (08:45)
[2017-09-25] MEDS: ASPIRIN EC 81 MG TAB PO SCH (08:46)
[2017-09-25] MEDS: FOLIC ACID 1 MG TAB PO SCH (08:46)
[2017-09-25] MEDS: metFORMIN HCL 500 MG TAB PO SCH ×2 (08:46→17:45)
[2017-09-25] MEDS: INSULIN GLARGINE 100 UNITS/ML UNIT SC SCH (09:45)
[2017-09-25] MEDS: INSULIN LISPRO 100 UNIT/1 ML VIAL STANDARD SC SCH ×3 (09:45→16:18)
[2017-09-25] MEDS: OLANZapine DISINTEGR 5 MG TAB PO SCH (20:56)
[2017-09-26] MEDS: INSULIN LISPRO 100 UNIT/1 ML VIAL STANDARD SC SCH ×3 (08:04→15:57)
[2017-09-26] MEDS: FOLIC ACID 1 MG TAB PO SCH (08:43)
[2017-09-26] MEDS: MULTIVITAMINS 1 EACH TAB PO SCH (08:44)
[2017-09-26] MEDS: INSULIN GLARGINE 100 UNITS/ML UNIT SC SCH (08:44)
[2017-09-26] MEDS: LISINOPRIL 20 MG TAB PO SCH (08:44)
[2017-09-26] MEDS: ASPIRIN EC 81 MG TAB PO SCH (08:45)
[2017-09-26] MEDS: metFORMIN HCL 500 MG TAB PO SCH ×2 (08:45→17:58)
[2017-09-26] MEDS: amLODIPine BESYLATE 5 MG TAB PO SCH (08:45)
[2017-09-26] MEDS: ACETAMINOPHEN 325 MG TAB PO PRN ×2 (09:36→19:30)
--- NOTE | 2017-09-26 15:14 | SOAPPROG ---
SOAP Progress Note Assessment/Plan: Assessment: Per Dr. Burciaga's notes: Pt presents for continued acute course ECT. Slept much better for two nights, but was up most of last night. Continues to wax and wane, becoming more paranoid at times, appropriately conversant at others. Oppositional but not hostile this morning. Refused theophylline. Will consider addition of antipsychotic now that the catatonic aspect of pt's illness is improving and the psychosis remains the primary management issue. 09/26/17 15:10 1. Similar presentation for past several days. Irritable and intermittently confused, generally disorganized and paranoid at times. 2. [facility] - plan to continue ECT with Dr. Burciaga Subjective: Met with patient, reviewed chart and d/w staff. RN and MHT report patient very irritable and complaining about "noise" on unit this AM. In group, patient got up and left and came back several times with obvious irritability. He said he didn't appreciate the "noise" and "can't make any art" in this environment. But later he apologized to MHT. His blood glucose was 52 right before lunch, and MD encouraged him to eat. He said he felt "better" after lunch and was more pleasant. Objective: Vital Signs Temp Pulse Resp BP Pulse Ox 36.2 C 62 14 163/74 H 98 09/26/17 06:59 09/26/17 06:59 09/26/17 06:59 09/26/17 06:59 09/26/17 06:59 Laboratory Results 09/15/17 05:40 MSE: Affect: Irritable Mood: Mostly angry, pleasant at times, smiling occasionally TP: Disorganized, limited ability to complete a thought TC: Denies any AH/VH, denies feeling paranoid, but engages in paranoid behaviors like barricading his room Insight/Judgment: Impaired - Time Spent With Patient Time Spent With Patient: 20" - Pending Discharge Pending Discharge Within 24 Hours: No Pending Discharge Within 48 Hours: No ICD10 Worksheet Patient Problems: Problems Problem Status Onset Bipolar mood disorder Acute
[2017-09-26] MEDS: OLANZapine DISINTEGR 5 MG TAB PO SCH ×2 (22:23→23:30)
[2017-09-27] MEDS: metFORMIN HCL 500 MG TAB PO SCH ×2 (08:28→17:19)
[2017-09-27] MEDS: INSULIN GLARGINE 100 UNITS/ML UNIT SC SCH (08:38)
[2017-09-27] MEDS: LISINOPRIL 20 MG TAB PO SCH (08:38)
[2017-09-27] MEDS: FOLIC ACID 1 MG TAB PO SCH (08:39)
[2017-09-27] MEDS: ASPIRIN EC 81 MG TAB PO SCH (08:39)
[2017-09-27] MEDS: amLODIPine BESYLATE 5 MG TAB PO SCH (08:39)
[2017-09-27] MEDS: MULTIVITAMINS 1 EACH TAB PO SCH (08:41)
[2017-09-27] MEDS: INSULIN LISPRO 100 UNIT/1 ML VIAL STANDARD SC SCH ×3 (08:41→15:53)
[2017-09-27] MEDS: ACETAMINOPHEN 325 MG TAB PO PRN ×2 (10:18→21:53)
--- NOTE | 2017-09-27 14:02 | SOAPPROG ---
SOAP Progress Note Assessment/Plan: Assessment: Per Dr. Burciaga's notes: Pt presents for continued acute course ECT. Slept much better for two nights, but was up most of last night. Continues to wax and wane, becoming more paranoid at times, appropriately conversant at others. Oppositional but not hostile this morning. Refused theophylline. Will consider addition of antipsychotic now that the catatonic aspect of pt's illness is improving and the psychosis remains the primary management issue. 09/26/17 15:10 1. Similar presentation for past several days. Irritable and intermittently confused, generally disorganized and paranoid at times. 2. [facility] - plan to continue ECT with Dr. Burciaga 09/27/17 13:57 1. Patient slept 6.5 hrs last night, which is significant improvement. 2. Patient initially refused Olanzapine 5mg at HS, but eventually took it at 2330. 3. Less irritable today, but still easily confused and often disoriented. 4. ECT tomorrow. Subjective: Met with patient, reviewed chart and d/w staff. Patient is less irritable this AM. However, he continues to demonstrate memory deficits and frequent confusion. He seems to get easily upset when he can't follow directions or is overwhelmed by too much information. MD thinks this is why he is more irritable in group settings. He told CC this AM that he had trouble filling out papers in group and was bothered by "noise" which he c/o a lot yesterday. It's likely that too much stimulation or distraction overwhelms his limited executive fxn and makes it more difficult for patient to understand how to follow directions, even simple ones like in group. This doesn't seem overtly related to mood or psychosis, but may be d/t cognitive impairment secondary to mood/psychosis or treatment. It's also possible there is a secondary cognitive issue occurring simultaneously with his mental illness that was not previously severe enough to warrant diagnosis. Objective: Vital Signs Temp Pulse Resp BP Pulse Ox 36.6 C 66 16 150/72 H 94 09/27/17 08:00 09/27/17 08:00 09/27/17 08:00 09/27/17 08:00 09/27/17 08:00 Laboratory Results 09/15/17 05:40 MSE: Affect: Less irritable Mood: "Fine" TP: Disorganized, confused, tangential TC: Denies any SI/HI, no AH/VH, intermittently paranoid Insight/ Judgment: Poor - Time Spent With Patient Time Spent With Patient: 20" - Pending Discharge Pending Discharge Within 24 Hours: No Pending Discharge Within 48 Hours: No ICD10 Worksheet Patient Problems: Problems Problem Status Onset Bipolar mood disorder Acute
[2017-09-27] MEDS: OLANZapine DISINTEGR 5 MG TAB PO SCH (21:53)
[2017-09-28] MEDS ORDERED: ONDANSETRON DISINTEGRATING 4 MG TAB PO PRN (04:00)
[2017-09-28] MEDS ORDERED: THEOPHYLLINE ORAL SOLUTION 80 MG/15 ML UDCUP PO ONE (04:00)
[2017-09-28] MEDS ORDERED: CITRIC ACID/SODIUM CITRATE 30 ML UDCUP PO PRN (04:00)
[2017-09-28] MEDS ORDERED: NS 1,000 ML IV PRN (04:00)
[2017-09-28] MEDS: LISINOPRIL 20 MG TAB PO SCH (05:16)
[2017-09-28] MEDS: amLODIPine BESYLATE 5 MG TAB PO SCH (05:17)
[2017-09-28] MEDS ORDERED: ETOMIDATE 20 MG/10 ML VIAL ONE (06:21)
[2017-09-28] MEDS ORDERED: GLYCOPYRROLATE 0.2 MG/1 ML VIAL ONE (06:21)
[2017-09-28] MEDS ORDERED: ONDANSETRON 4 MG/2 ML VIAL ONE (06:21)
[2017-09-28] MEDS ORDERED: fentaNYL 100 MCG/2 ML INJ ONE (06:21)
[2017-09-28] MEDS ORDERED: MIDAZOLAM 2 MG/2 ML VIAL ONE (06:21)
[2017-09-28] MEDS ORDERED: ROCURONIUM 50 MG/5 ML VIAL ONE (06:22)
[2017-09-28] MEDS ORDERED: SUCCINYLCHOLINE CHLORIDE 200 MG/10 ML VIAL ONE (06:22)
[2017-09-28] MEDS ORDERED: CITRIC ACID/SODIUM CITRATE 30 ML UDCUP ONE (07:21)
[2017-09-28] MEDS ORDERED: ONDANSETRON DISINTEGRATING 4 MG TAB ONE (07:21)
--- NOTE | 2017-09-28 08:09 | PDECTPN ---
ECT Progress Note Patient Problems: Problems Problem Status Onset Code Bipolar mood disorder Acute F31.9 Date: 09/28/17 ECT provider: Tim Burciaga Anesthesia: Jose Alberto Greer Stimulus dose (%): 80 Pulse width: 0.5 ECT EMG (sec): 30 ECT EEG (sec): 30 ECT treatment type: bilateral QIDS-SR Total Score: 4 QIDS-SR Question #12 Score: 0 MMSE Total Score (Max = 21): 21 Next ECT date: 09/30/17 Next ECT time: 06:30 Home medications: Aspirin EC [Aspirin EC 81 mg (*)] 81 mg PO DAILY 08/27/17 [Last Taken Unknown] Atorvastatin Calcium [Lipitor 40 mg (*)] 40 mg PO HS 08/27/17 [Last Taken Unknown] Insulin Glargine [Lantus 100 UNITS/ML (*)] 40 units SC DAILY 08/27/17 [Last Taken Unknown] Lisinopril [Zestril 20 mg (*)] 20 mg PO DAILY 08/27/17 [Last Taken Unknown] Saxagliptin HCl [Onglyza] 2.5 mg PO DAILY 08/27/17 [Last Taken Unknown] amLODIPine BESYLATE [Norvasc 5 mg (*)] 5 mg PO DAILY 08/27/17 [Last Taken Unknown] metFORMIN HCL [Glucophage 500 mg (*)] 1,000 mg PO BIDMEAL 08/27/17 [Last Taken Unknown] traZODone [traZODONE 50MG (*)] 50 mg PO HS PRN 08/27/17 [Last Taken Unknown] Current treatment plan: acute phase Treatment plan frequency: 3 times per week ECT narrative: Pt presents for continued acute course ECT. Clinical course is variable, but seemingly improved with Zyprexa. Slept better over the last two nights and is pleasant, cooperative and engaging this morning. Had periods of disorganization and paranoia Thursday and Thursday. Underwent bilateral ECT without complication.
--- NOTE | 2017-09-28 08:11 | PDANEPAE ---
ECT Pre Anesthetic Evaluation Allergies/Adverse Reactions: No Known Drug Allergies Allergy (Verified 08/27/17 09:12) Patient ID confirmed: Yes H&P reviewed: Yes Pre-anesthetic history reviewed: Yes Heart: regular rate and rhythym, no murmur, rub, or gallop Lungs: no respiratory distress, clear to auscultation Mallampati Score: Class 2 ASA Status: II Home Medications: Aspirin EC [Aspirin EC 81 mg (*)] 81 mg PO DAILY 08/27/17 [Last Taken Unknown] Atorvastatin Calcium [Lipitor 40 mg (*)] 40 mg PO HS 08/27/17 [Last Taken Unknown] Insulin Glargine [Lantus 100 UNITS/ML (*)] 40 units SC DAILY 08/27/17 [Last Taken Unknown] Lisinopril [Zestril 20 mg (*)] 20 mg PO DAILY 08/27/17 [Last Taken Unknown] Saxagliptin HCl [Onglyza] 2.5 mg PO DAILY 08/27/17 [Last Taken Unknown] amLODIPine BESYLATE [Norvasc 5 mg (*)] 5 mg PO DAILY 08/27/17 [Last Taken Unknown] metFORMIN HCL [Glucophage 500 mg (*)] 1,000 mg PO BIDMEAL 08/27/17 [Last Taken Unknown] traZODone [traZODONE 50MG (*)] 50 mg PO HS PRN 08/27/17 [Last Taken Unknown] Medication review: completed Patient interviewed: Yes Patient examined: Yes Anesthetic plan discussed with patient: Yes Anesthetic risks discussed with patient: Yes ECT Pre-Anesthetic History - Height & Weight Height: 179.07 cm Weight: 77.564 kg BMI: 24.21 - Tobacco/Alcohol/Drug Use Smoking Status: Never smoked Alcohol Use: No - Pulmonary History Hx Oxygen in Use at Home: No - Endocrine History Hx Diabetes: Yes - Opthalmic History Visual Assistive Devices: None
--- NOTE | 2017-09-28 08:21 | POSTANESTH ---
Post Anesthetic Evaluation Cardiovascular Status: Normal, Stable Respiratory Status: Normal, Stable, Requires Airway Assist Level of Consciousness/Mental Status: Unconscious Pain Control: Adequate, Prn Tx Ordered Nausea/Vomiting Control: Adequate, Prn Tx Ordered Complications Possibly Related to Anesthesia: Other, See Comments (PVCs and hypertension treated with lidocaie and labetolol respectively. See anesthesia record for doses)
[2017-09-28] MEDS ORDERED: LIDOCAINE 2% 100 MG/5 ML SYR ONE (08:24)
[2017-09-28] MEDS: FOLIC ACID 1 MG TAB PO SCH (09:39)
[2017-09-28] MEDS: metFORMIN HCL 500 MG TAB PO SCH ×2 (09:39→17:24)
[2017-09-28] MEDS: ASPIRIN EC 81 MG TAB PO SCH (09:39)
[2017-09-28] MEDS: MULTIVITAMINS 1 EACH TAB PO SCH (09:39)
[2017-09-28] MEDS: INSULIN GLARGINE 100 UNITS/ML UNIT SC SCH (09:40)
[2017-09-28] MEDS: INSULIN LISPRO 100 UNIT/1 ML VIAL STANDARD SC SCH ×3 (09:56→17:24)
[2017-09-28] MEDS: OLANZapine DISINTEGR 5 MG TAB PO SCH (20:45)
[2017-09-29] MEDS: INSULIN LISPRO 100 UNIT/1 ML VIAL STANDARD SC SCH ×3 (07:49→16:51)
[2017-09-29] MEDS: amLODIPine BESYLATE 5 MG TAB PO SCH (08:20)
[2017-09-29] MEDS: LISINOPRIL 20 MG TAB PO SCH (08:20)
[2017-09-29] MEDS: ASPIRIN EC 81 MG TAB PO SCH (08:20)
[2017-09-29] MEDS: FOLIC ACID 1 MG TAB PO SCH (08:20)
[2017-09-29] MEDS: metFORMIN HCL 500 MG TAB PO SCH ×2 (08:20→18:39)
[2017-09-29] MEDS: MULTIVITAMINS 1 EACH TAB PO SCH (08:20)
[2017-09-29] MEDS: INSULIN GLARGINE 100 UNITS/ML UNIT SC SCH (08:21)
[2017-09-29] MEDS: ACETAMINOPHEN 325 MG TAB PO PRN (11:08)
--- NOTE | 2017-09-29 16:59 | SOAPPROG ---
SOAP Progress Note Assessment/Plan: Assessment: Plan: 09/01/17 11:04 Mood: Remains catatonically excited. Will petition court for involuntary ECT as patient is clearly unable to provide consent at this time. Continue PRN Seroquel and lorazepam. 09/02/17 14:21 Catatonia: remains agitated, disorganized. Will [facility], await hearing for court ordered ECT. 09/07/17 14:38 Catatonia: Remains quite ill. Unable to discuss treatment per previous encounters. No improvement over my absence. Awaiting hearing for [facility]. 09/08/17 14:02 Catatonia: Some improvement. Will begin ECT tomorrow. 09/09/17 13:54 Catatonia: No change. Refuses treatment today. I did not receive the copy of the court order until after the encounter with patient. He was returned to the unit and I will work with nursing staff to formulate a plan for pretreatment sedation for Thursday. The records from the [facility] indicate that he responded very well to the first treatment there and became more cooperative. 09/10/17 14:13 Catatonia: No change. We need to reverse this as soon as possible. Will proceed with involuntary treatment tomorrow. Will discuss plan with Nurse and Dr. Greer. 09/11/17 16:08 Catatonia: Unchanged. Started acute course ECT today. Expect rapid recovery. 09/14/17 14:59 Catatonia: Improved despite downturn yesterday. CCM. 09/15/17 16:12 Catatonia: Remains disorganized. [facility] inc: ECT. 09/16/17 15:31 Catatonia: Resolving. Much more lucid today. Cannot explain lack of threshold event. Will d/c scheduled lorazepam, increase trazodone at HS for sleep. Will add theophylline for next treatment. 09/17/17 15:54 Catatonia: Remains quite ill. Will [facility]. Continue to hold antipsychotic medications due to catatonia. Hope to see symptomatic relief with ECT. Will [facility]. Increase trazodone at HS for sleep, d/c scheduled lorazepam, add theophylline. 09/18/17 14:13 Catatonia: Slow improvement. MMSE=21 today, more lucid. Needs to sleep. Want to avoid ANY anticholinergic inc: any tertiary amine tricyclics. Also want to generally limit total benzodiazepine burden so not to interfere with ECT. Will therefore use zolpidem and ciproheptadine in combination. This is discussed with patient. 09/22/17 08:19 Catatonia: Remains agitated. Insomnia persists. Will decrease SQL dose, continue ECT. 09/29/17 16:57 Catatonia: Appears resolved at this point. The psychosis is much improved with Zyprexa as is sleep. Will do ECT tomorrow, continue Zyprexa. Consider d/c' ing further ECT to conserve overall cognition. Will plan for d/c early next week if all is well. Family and CC are working on d/c plan inc: [facility]. Subjective: Pt seen, discussed with staff. Reports feeling "just fine." Up and around unit , more appropriately interactive. He asks to speak with me "about the ECT treatments." He states he was told that the treatments are over "because we have already done eight and I was only supposed to get seven." He has, in fact , gotten eight, but I informed him that we need to do at least one or two more to make sure he is out of the catatonia. He took the Zyprexa again last night and slept well. Objective: Vital Signs Temp Pulse Resp BP Pulse Ox 36.6 C 64 14 124/70 H 95 09/29/17 07:09 09/29/17 07:09 09/29/17 07:09 09/29/17 07:09 09/29/17 07:09 Laboratory Results 09/15/17 05:40 09/28/17 09/29/17 09/30/17 05:59 05:59 05:59 Intake Total 1237 Balance 1237 - Time Spent With Patient Time Spent With Patient: 25" ICD10 Worksheet Patient Problems: Problems Problem Status Onset Bipolar mood disorder Acute
[2017-09-29] MEDS: OLANZapine DISINTEGR 5 MG TAB PO SCH (21:01)
[2017-09-30] MEDS ORDERED: ONDANSETRON DISINTEGRATING 4 MG TAB PO PRN (04:30)
[2017-09-30] MEDS ORDERED: NS 1,000 ML IV PRN (04:30)
[2017-09-30] MEDS ORDERED: THEOPHYLLINE ORAL SOLUTION 80 MG/15 ML UDCUP PO ONE (04:30)
[2017-09-30] MEDS ORDERED: CITRIC ACID/SODIUM CITRATE 30 ML UDCUP PO PRN (04:30)
[2017-09-30] MEDS: LISINOPRIL 20 MG TAB PO SCH (04:50)
[2017-09-30] MEDS: amLODIPine BESYLATE 5 MG TAB PO SCH (04:52)
[2017-09-30] MEDS ORDERED: fentaNYL 100 MCG/2 ML INJ ONE (05:36)
[2017-09-30] MEDS ORDERED: LIDOCAINE 2% 5 ML SDV ONE (05:37)
[2017-09-30] MEDS ORDERED: GLYCOPYRROLATE 0.2 MG/1 ML VIAL ONE (05:37)
[2017-09-30] MEDS ORDERED: ETOMIDATE 20 MG/10 ML VIAL ONE (05:37)
[2017-09-30] MEDS ORDERED: ONDANSETRON 4 MG/2 ML VIAL ONE (05:37)
[2017-09-30] MEDS ORDERED: MIDAZOLAM 2 MG/2 ML VIAL ONE (05:37)
[2017-09-30] MEDS ORDERED: ROCURONIUM 50 MG/5 ML VIAL ONE (05:38)
[2017-09-30] MEDS ORDERED: SUCCINYLCHOLINE CHLORIDE 200 MG/10 ML VIAL ONE (05:38)
[2017-09-30] MEDS ORDERED: CITRIC ACID/SODIUM CITRATE 30 ML UDCUP ONE (06:00)
[2017-09-30] MEDS ORDERED: ONDANSETRON DISINTEGRATING 4 MG TAB ONE (06:00)
--- NOTE | 2017-09-30 06:46 | PDANEPAE ---
ECT Pre Anesthetic Evaluation Allergies/Adverse Reactions: No Known Drug Allergies Allergy (Verified 08/27/17 09:12) Patient ID confirmed: Yes H&P reviewed: Yes Pre-anesthetic history reviewed: Yes Heart: regular rate and rhythym, no murmur, rub, or gallop Lungs: no respiratory distress, clear to auscultation Mallampati Score: Class 2 ASA Status: II Home Medications: Aspirin EC [Aspirin EC 81 mg (*)] 81 mg PO DAILY 08/27/17 [Last Taken Unknown] Atorvastatin Calcium [Lipitor 40 mg (*)] 40 mg PO HS 08/27/17 [Last Taken Unknown] Insulin Glargine [Lantus 100 UNITS/ML (*)] 40 units SC DAILY 08/27/17 [Last Taken Unknown] Lisinopril [Zestril 20 mg (*)] 20 mg PO DAILY 08/27/17 [Last Taken Unknown] Saxagliptin HCl [Onglyza] 2.5 mg PO DAILY 08/27/17 [Last Taken Unknown] amLODIPine BESYLATE [Norvasc 5 mg (*)] 5 mg PO DAILY 08/27/17 [Last Taken Unknown] metFORMIN HCL [Glucophage 500 mg (*)] 1,000 mg PO BIDMEAL 08/27/17 [Last Taken Unknown] traZODone [traZODONE 50MG (*)] 50 mg PO HS PRN 08/27/17 [Last Taken Unknown] Medication review: completed Patient interviewed: Yes Patient examined: Yes Anesthetic plan discussed with patient: Yes Anesthetic risks discussed with patient: Yes ECT Pre-Anesthetic History - Height & Weight Height: 179.07 cm Weight: 77.564 kg BMI: 24.21 - Anesthesia History Hx Anesthesia Complications (with details): NONE Family Hx Anesthesia Complications: NONE - Medications In the Past 6 Months the Patient Has Taken: Aspirin, Insulin, Blood Pressure Medication - Tobacco/Alcohol/Drug Use Smoking Status: Never smoked Hx Drug/Substance Abuse: No Alcohol Use: Yes Tobacco/Alcohol/Drug Use History Comment: PT REPORTS "VERY HIGH USE" FOR ALCOHOL USE - Prior Surgeries/Hospitalizations Prior Surgeries: WISDOM TEETH REMOVED Prior Medical Hospitalizations: "DON'T REMEMBER OFF HAND" - Pulmonary History ECT Hx Asthma: No Hx Abnormal Chest X-Ray: No Hx Oxygen in Use at Home: No - Cardiovascular History Hx Hypertension: Yes Currently Uses Hypertension Medication: Yes Hx Arrhythmias: No Hx Palpitations: No Hx Chest Pain: No Hx Coronary Artery / Peripheral Vascular Disease: No Hx Blood Clot: No - Neurologic History Hx Cerebrovascular Accident: No Hx CT Scan Or MRI Of The Brain: Yes Hx Epilepsy, Convulsions, Seizures, Or Blackouts: No Hx Frequent Or Severe Headaches: No Hx Numbness: Yes Hx Neurologic Disorder: No Neurologic History Comment: PT REPORTS "A LITTLE" AMOUNT OF NEUROPATHY IN TOES - Dental History Current Dental Issues: None - Endocrine History Hx Diabetes: Yes Current Daily Insulin Injections: Yes Hx Thyroid Problems: No - Renal/Urologic History Hx Renal Disorders: No Hx Urinary Tract Problems: No - Liver History Hx Hepatic Disorders: No - Hematology History Hx Unexplained Bleeding Of Any Type: No Hx Ease Of Bruising: No Hx Anemia: Yes - Gastrointestinal History Hx Gastroesophogeal Reflux Disease: Yes Hx Ulcers: No Hx Hiatal Hernia: No Hx Difficulty Swallowing: No - Musculoskeletal Hisory Hx Chronic Pain: No - Opthalmic History Hx Glaucoma: No Visual Assistive Devices: None Hx Opthalmic Disorders: No - Other Health History Physical Disabililty: No Recent Cough, Cold, or Fever: No Significant Weight Loss In The Last 4 Months: Yes Possible the Patient Might be : No Other Health History Comment: PT REPORTS A 30LB WEIGHT LOSS
--- NOTE | 2017-09-30 06:54 | PDECTPN ---
ECT Progress Note Patient Problems: Problems Problem Status Onset Code Bipolar mood disorder Acute F31.9 Date: 09/30/17 Treatment#: 9 ECT provider: Tim Burciaga Anesthesia: Jose Alberto Greer Stimulus dose (%): 85 Pulse width: 0.5 ECT EMG (sec): 30 ECT EEG (sec): 55 ECT treatment type: bilateral QIDS-SR Total Score: 6 QIDS-SR Question #12 Score: 0 MMSE Total Score (Max = 21): 18 Next ECT date: 10/02/17 Next ECT time: 08:00 Home medications: Aspirin EC [Aspirin EC 81 mg (*)] 81 mg PO DAILY 08/27/17 [Last Taken Unknown] Atorvastatin Calcium [Lipitor 40 mg (*)] 40 mg PO HS 08/27/17 [Last Taken Unknown] Insulin Glargine [Lantus 100 UNITS/ML (*)] 40 units SC DAILY 08/27/17 [Last Taken Unknown] Lisinopril [Zestril 20 mg (*)] 20 mg PO DAILY 08/27/17 [Last Taken Unknown] Saxagliptin HCl [Onglyza] 2.5 mg PO DAILY 08/27/17 [Last Taken Unknown] amLODIPine BESYLATE [Norvasc 5 mg (*)] 5 mg PO DAILY 08/27/17 [Last Taken Unknown] metFORMIN HCL [Glucophage 500 mg (*)] 1,000 mg PO BIDMEAL 08/27/17 [Last Taken Unknown] traZODone [traZODONE 50MG (*)] 50 mg PO HS PRN 08/27/17 [Last Taken Unknown] Medication review: completed Current treatment plan: acute phase Treatment plan frequency: 3 times per week ECT narrative: Pt presents for continued acute course ECT. He continues to improve with much improved overall mood and cognition, resolution of catatonic signs and stabilization of mood. Tolerating Zyprexa well. Sleep much improved. Underwent bilateral ECT without complication.
[2017-09-30] MEDS ORDERED: LABETALOL HCL 5 MG/ML 20 ML MDV ONE (07:35)
[2017-09-30] MEDS: INSULIN LISPRO 100 UNIT/1 ML VIAL STANDARD SC SCH ×3 (07:49→16:07)
[2017-09-30] MEDS: FOLIC ACID 1 MG TAB PO SCH (08:35)
[2017-09-30] MEDS: MULTIVITAMINS 1 EACH TAB PO SCH (08:35)
[2017-09-30] MEDS: ASPIRIN EC 81 MG TAB PO SCH (08:35)
[2017-09-30] MEDS: metFORMIN HCL 500 MG TAB PO SCH ×2 (08:35→17:19)
[2017-09-30] MEDS: INSULIN GLARGINE 100 UNITS/ML UNIT SC SCH (08:36)
--- NOTE | 2017-09-30 13:28 | PDECTIHP ---
ECT Interval H&P General health: In collaboration with Anesthesiology, potential benefits of treatment outweigh risk. Significant medical history: diabetic, hypertension Focused physical exam including relevant body area/organ sys: alert & oriented, moves all extremities, no progressively increasing headaches, no ataxia, no evidence of delirium, no focal sensory deficits, no focal weakness, speech normal
[2017-09-30] MEDS: MAG HYDROX/AL HYDROX/SIMETH 30 ML UDCUP PO PRN (19:45)
[2017-09-30] MEDS: OLANZapine DISINTEGR 5 MG TAB PO SCH (21:30)
[2017-10-01] MEDS: MULTIVITAMINS 1 EACH TAB PO SCH (08:32)
[2017-10-01] MEDS: metFORMIN HCL 500 MG TAB PO SCH ×2 (08:32→17:14)
[2017-10-01] MEDS: LISINOPRIL 20 MG TAB PO SCH (08:32)
[2017-10-01] MEDS: FOLIC ACID 1 MG TAB PO SCH (08:32)
[2017-10-01] MEDS: ASPIRIN EC 81 MG TAB PO SCH (08:32)
[2017-10-01] MEDS: INSULIN LISPRO 100 UNIT/1 ML VIAL STANDARD SC SCH ×3 (08:33→17:18)
[2017-10-01] MEDS: amLODIPine BESYLATE 5 MG TAB PO SCH (08:33)
[2017-10-01] MEDS: INSULIN GLARGINE 100 UNITS/ML UNIT SC SCH (08:33)
--- NOTE | 2017-10-01 15:04 | SOAPPROG ---
SOAP Progress Note Assessment/Plan: Assessment: Plan: 09/01/17 11:04 Mood: Remains catatonically excited. Will petition court for involuntary ECT as patient is clearly unable to provide consent at this time. Continue PRN Seroquel and lorazepam. 09/02/17 14:21 Catatonia: remains agitated, disorganized. Will [facility], await hearing for court ordered ECT. 09/07/17 14:38 Catatonia: Remains quite ill. Unable to discuss treatment per previous encounters. No improvement over my absence. Awaiting hearing for [facility]. 09/08/17 14:02 Catatonia: Some improvement. Will begin ECT tomorrow. 09/09/17 13:54 Catatonia: No change. Refuses treatment today. I did not receive the copy of the court order until after the encounter with patient. He was returned to the unit and I will work with nursing staff to formulate a plan for pretreatment sedation for Thursday. The records from the [facility] indicate that he responded very well to the first treatment there and became more cooperative. 09/10/17 14:13 Catatonia: No change. We need to reverse this as soon as possible. Will proceed with involuntary treatment tomorrow. Will discuss plan with Nurse and Dr. Greer. 09/11/17 16:08 Catatonia: Unchanged. Started acute course ECT today. Expect rapid recovery. 09/14/17 14:59 Catatonia: Improved despite downturn yesterday. CCM. 09/15/17 16:12 Catatonia: Remains disorganized. [facility] inc: ECT. 09/16/17 15:31 Catatonia: Resolving. Much more lucid today. Cannot explain lack of threshold event. Will d/c scheduled lorazepam, increase trazodone at HS for sleep. Will add theophylline for next treatment. 09/17/17 15:54 Catatonia: Remains quite ill. Will [facility]. Continue to hold antipsychotic medications due to catatonia. Hope to see symptomatic relief with ECT. Will [facility]. Increase trazodone at HS for sleep, d/c scheduled lorazepam, add theophylline. 09/18/17 14:13 Catatonia: Slow improvement. MMSE=21 today, more lucid. Needs to sleep. Want to avoid ANY anticholinergic inc: any tertiary amine tricyclics. Also want to generally limit total benzodiazepine burden so not to interfere with ECT. Will therefore use zolpidem and ciproheptadine in combination. This is discussed with patient. 09/22/17 08:19 Catatonia: Remains agitated. Insomnia persists. Will decrease SQL dose, continue ECT. 09/29/17 16:57 Catatonia: Appears resolved at this point. The psychosis is much improved with Zyprexa as is sleep. Will do ECT tomorrow, continue Zyprexa. Consider d/c' ing further ECT to conserve overall cognition. Will plan for d/c early next week if all is well. Family and CC are working on d/c plan inc: [facility]. 10/01/17 15:04 Catatonia: much improved. Will proceed with final ECT tomorrow and work toward d/c 10/06/17. Subjective: Pt seen, discussed with staff. Reports feeling "frustrated being here." I discussed with him the d/c plan and he becomes angry. States "it's not fair" for him to be in the hospital any longer. I reframed to remind him of the progress he has made and he is able to acknowledge this, but still wants to leave prior to next Thursday. Agreeable to ECT tomorrow. Objective: Vital Signs Temp Pulse Resp BP Pulse Ox 37.1 C 70 16 142/68 H 95 10/01/17 00:30 10/01/17 14:08 10/01/17 14:08 10/01/17 14:08 10/01/17 14:08 Laboratory Results 09/15/17 05:40 09/30/17 10/01/17 10/02/17 05:59 05:59 05:59 Intake Total 760 Balance 760 MSE: Adequately groomed, appropriately interactive. Affect is irritable when discussing d/c. Mood is "frustrated." TP generally linear. TC reveals no evidence of paranoia. - Time Spent With Patient Time Spent With Patient: 25" ICD10 Worksheet Patient Problems: Problems Problem Status Onset Bipolar mood disorder Acute
[2017-10-01] MEDS: ACETAMINOPHEN 325 MG TAB PO PRN (16:16)
[2017-10-01] MEDS: OLANZapine DISINTEGR 5 MG TAB PO SCH (22:29)
[2017-10-02] MEDS ORDERED: ETOMIDATE 20 MG/10 ML VIAL ONE (05:36)
[2017-10-02] MEDS ORDERED: ROCURONIUM 50 MG/5 ML VIAL ONE (05:36)
[2017-10-02] MEDS ORDERED: ONDANSETRON 4 MG/2 ML VIAL ONE (05:36)
[2017-10-02] MEDS ORDERED: GLYCOPYRROLATE 0.2 MG/1 ML VIAL ONE (05:36)
[2017-10-02] MEDS ORDERED: SUCCINYLCHOLINE CHLORIDE 200 MG/10 ML VIAL ONE (05:36)
[2017-10-02] MEDS ORDERED: MIDAZOLAM 2 MG/2 ML VIAL ONE (05:36)
[2017-10-02] MEDS ORDERED: fentaNYL 100 MCG/2 ML INJ ONE (05:36)
[2017-10-02] MEDS: amLODIPine BESYLATE 5 MG TAB PO SCH (05:59)
[2017-10-02] MEDS: LISINOPRIL 20 MG TAB PO SCH (06:06)
[2017-10-02] MEDS ORDERED: ONDANSETRON DISINTEGRATING 4 MG TAB PO PRN (08:02)
[2017-10-02] MEDS ORDERED: CITRIC ACID/SODIUM CITRATE 30 ML UDCUP PO PRN (08:02)
[2017-10-02] MEDS ORDERED: NS 1,000 ML IV PRN (08:02)
[2017-10-02] MEDS ORDERED: THEOPHYLLINE ORAL SOLUTION 80 MG/15 ML UDCUP PO ONE (08:02)
[2017-10-02] MEDS ORDERED: ONDANSETRON DISINTEGRATING 4 MG TAB ONE (08:18)
[2017-10-02] MEDS ORDERED: CITRIC ACID/SODIUM CITRATE 30 ML UDCUP ONE (08:18)
[2017-10-02] MEDS: metFORMIN HCL 500 MG TAB PO SCH ×3 (08:40→17:49)
[2017-10-02] MEDS: FOLIC ACID 1 MG TAB PO SCH ×2 (08:40→09:50)
[2017-10-02] MEDS: INSULIN LISPRO 100 UNIT/1 ML VIAL STANDARD SC SCH ×3 (08:40→17:49)
[2017-10-02] MEDS: ASPIRIN EC 81 MG TAB PO SCH ×2 (08:40→09:51)
[2017-10-02] MEDS: INSULIN GLARGINE 100 UNITS/ML UNIT SC SCH ×2 (08:40→09:51)
[2017-10-02] MEDS: MULTIVITAMINS 1 EACH TAB PO SCH ×2 (08:41→09:54)
--- NOTE | 2017-10-02 08:52 | PDECTPN ---
ECT Progress Note Patient Problems: Problems Problem Status Onset Code Bipolar mood disorder Acute F31.9 Date: 10/02/17 ECT provider: Tim Burciaga Anesthesia: Jose Alberto Greer Stimulus dose (%): 90 Pulse width: 0.5 ECT EMG (sec): 28 ECT EEG (sec): 42 ECT treatment type: bilateral QIDS-SR Total Score: 8 QIDS-SR Question #12 Score: 0 MMSE Total Score (Max = 21): 18 Home medications: Aspirin EC [Aspirin EC 81 mg (*)] 81 mg PO DAILY 08/27/17 [Last Taken Unknown] Atorvastatin Calcium [Lipitor 40 mg (*)] 40 mg PO HS 08/27/17 [Last Taken Unknown] Insulin Glargine [Lantus 100 UNITS/ML (*)] 40 units SC DAILY 08/27/17 [Last Taken Unknown] Lisinopril [Zestril 20 mg (*)] 20 mg PO DAILY 08/27/17 [Last Taken Unknown] Saxagliptin HCl [Onglyza] 2.5 mg PO DAILY 08/27/17 [Last Taken Unknown] amLODIPine BESYLATE [Norvasc 5 mg (*)] 5 mg PO DAILY 08/27/17 [Last Taken Unknown] metFORMIN HCL [Glucophage 500 mg (*)] 1,000 mg PO BIDMEAL 08/27/17 [Last Taken Unknown] traZODone [traZODONE 50MG (*)] 50 mg PO HS PRN 08/27/17 [Last Taken Unknown] Current treatment plan: acute phase Treatment plan frequency: 3 times per week ECT narrative: Pt presents for continued acute course ECT. Slept well again last night. Less irritable. Able to review d/c plan. Calm and cooperative. Tolerating Zyprexa well. Underwent bilateral ECT without complication.
[2017-10-02] MEDS ORDERED: LABETALOL HCL 5 MG/ML 20 ML MDV ONE (08:53)
--- NOTE | 2017-10-02 08:57 | POSTANESTH ---
Post Anesthetic Evaluation Cardiovascular Status: Normal, Stable Respiratory Status: Normal, Stable, Requires Airway Assist Level of Consciousness/Mental Status: Unconscious Pain Control: Adequate, Prn Tx Ordered Nausea/Vomiting Control: Adequate, Prn Tx Ordered Complications Possibly Related to Anesthesia: None Noted
[2017-10-02] MEDS: ACETAMINOPHEN 325 MG TAB PO PRN (21:33)
[2017-10-02] MEDS: OLANZapine DISINTEGR 5 MG TAB PO SCH (21:33)
[2017-10-03] MEDS: metFORMIN HCL 500 MG TAB PO SCH ×2 (08:43→17:46)
[2017-10-03] MEDS: MULTIVITAMINS 1 EACH TAB PO SCH (08:43)
[2017-10-03] MEDS: ASPIRIN EC 81 MG TAB PO SCH (08:43)
[2017-10-03] MEDS: FOLIC ACID 1 MG TAB PO SCH (08:44)
[2017-10-03] MEDS: LISINOPRIL 20 MG TAB PO SCH (08:45)
[2017-10-03] MEDS: amLODIPine BESYLATE 5 MG TAB PO SCH (08:48)
[2017-10-03] MEDS: INSULIN GLARGINE 100 UNITS/ML UNIT SC SCH (08:49)
[2017-10-03] MEDS: INSULIN LISPRO 100 UNIT/1 ML VIAL STANDARD SC SCH ×3 (08:59→17:52)
[2017-10-03] MEDS ORDERED: PSEUDOEPHEDRINE HCL 120 MG EXT REL TAB PO PRN ×2 (12:20→12:25)
[2017-10-03] MEDS: PSEUDOEPHEDRINE HCL 30 MG TAB PO PRN (12:51)
--- NOTE | 2017-10-03 13:41 | SOAPPROG ---
SOAP Progress Note Assessment/Plan: Assessment: Per Dr. Burciaga's notes: 09/29/17 16:57 Catatonia: Appears resolved at this point. The psychosis is much improved with Zyprexa as is sleep. Will do ECT tomorrow, continue Zyprexa. Consider d/c' ing further ECT to conserve overall cognition. Will plan for d/c early next week if all is well. Family and CC are working on d/c plan inc: [facility]. 10/01/17 15:04 Catatonia: much improved. Will proceed with final ECT tomorrow and work toward d/c 10/06/17. Subjective: Pt seen, discussed with staff. Reports feeling "frustrated being here." I discussed with him the d/c plan and he becomes angry. States "it's not fair" for him to be in the hospital any longer. I reframed to remind him of the progress he has made and he is able to acknowledge this, but still wants to leave prior to next Thursday. Agreeable to ECT tomorrow. 10/03/17 13:36 1. Patient alert and more oriented today. He still says he has hard time "remembering anything" that's happened while he's been in hospital. But he admits he is feeling "better" and would like to d/c. 2. Order Sudafed 30mg Q6H PRN for congestion. 3. Patient slept 8 hrs last night, significantly improved since starting Zyprexa. 4. Patient has completed course of ECT. Will continue to observe for further stabilization. 5. Likely to d/c this week. Subjective: Met with patient, reviewed chart and d/w staff. Patient presents smiling, more coherent, able to have limited conversation. He says memory is still not clear about many details of his hospital stay. Staff report his hygiene has improved and he is able to attend to daily activities much better. He denies any SI/HI, no evidence of psychosis at this time. Objective: Vital Signs Temp Pulse Resp BP Pulse Ox 36.6 C 63 12 134/63 H 97 10/03/17 08:40 10/03/17 08:40 10/03/17 08:40 10/03/17 08:48 10/03/17 08:40 Laboratory Results 09/15/17 05:40 10/02/17 10/03/17 10/04/17 05:59 05:59 05:59 Intake Total 850 Balance 850 MSE: Affect: Pleasant Mood: "Good" TP: More linear and coherent TC: Denies any SI/HI, no active psychosis Insight/Judgment: Improved - Time Spent With Patient Time Spent With Patient: 20" - Pending Discharge Pending Discharge Within 24 Hours: No Pending Discharge Within 48 Hours: No ICD10 Worksheet Patient Problems: Problems Problem Status Onset Bipolar mood disorder Acute
[2017-10-03] MEDS: OLANZapine DISINTEGR 5 MG TAB PO SCH (20:39)
[2017-10-04] MEDS: FOLIC ACID 1 MG TAB PO SCH (08:48)
[2017-10-04] MEDS: MULTIVITAMINS 1 EACH TAB PO SCH (08:48)
[2017-10-04] MEDS: metFORMIN HCL 500 MG TAB PO SCH ×2 (08:48→16:50)
[2017-10-04] MEDS: LISINOPRIL 20 MG TAB PO SCH (08:48)
[2017-10-04] MEDS: ASPIRIN EC 81 MG TAB PO SCH (08:48)
[2017-10-04] MEDS: amLODIPine BESYLATE 5 MG TAB PO SCH (08:49)
[2017-10-04] MEDS: INSULIN GLARGINE 100 UNITS/ML UNIT SC SCH (08:49)
[2017-10-04] MEDS: INSULIN LISPRO 100 UNIT/1 ML VIAL STANDARD SC SCH ×3 (09:14→16:49)
[2017-10-04] MEDS: ACETAMINOPHEN 325 MG TAB PO PRN (13:05)
--- NOTE | 2017-10-04 13:21 | SOAPPROG ---
SOAP Progress Note Assessment/Plan: Assessment: Per Dr. Burciaga's notes: 09/29/17 16:57 Catatonia: Appears resolved at this point. The psychosis is much improved with Zyprexa as is sleep. Will do ECT tomorrow, continue Zyprexa. Consider d/c' ing further ECT to conserve overall cognition. Will plan for d/c early next week if all is well. Family and CC are working on d/c plan inc: [facility]. 10/01/17 15:04 Catatonia: much improved. Will proceed with final ECT tomorrow and work toward d/c 10/06/17. Subjective: Pt seen, discussed with staff. Reports feeling "frustrated being here." I discussed with him the d/c plan and he becomes angry. States "it's not fair" for him to be in the hospital any longer. I reframed to remind him of the progress he has made and he is able to acknowledge this, but still wants to leave prior to next Thursday. Agreeable to ECT tomorrow. 10/03/17 13:36 1. Patient alert and more oriented today. He still says he has hard time "remembering anything" that's happened while he's been in hospital. But he admits he is feeling "better" and would like to d/c. 2. Order Sudafed 30mg Q6H PRN for congestion. 3. Patient slept 8 hrs last night, significantly improved since starting Zyprexa. 4. Patient has completed course of ECT. Will continue to observe for further stabilization. 5. Likely to d/c this week. 10/04/17 13:17 1. Elevated BP this AM (156/69). FSBS was 117. 2. Slept 7-1/2 hrs last night. 3. Sudafed "helping" for congestion. 4. Expects to d/c to assisted living. Subjective: Met with patient, reviewed chart and d/w staff. Patient tells MD he would like to d/c on Thursday instead of Thursday, so he can "leave sooner." MD advises patient to d/w treatment team on Thursday, however reminds patient that his daughter may need time to make arrangements with [place] where he will be going to live. Patient says she is looking forward to assisted living. Objective: Vital Signs Temp Pulse Resp BP Pulse Ox 36.6 C 64 16 156/69 H 97 10/03/17 08:40 10/04/17 08:45 10/04/17 08:45 10/04/17 08:49 10/04/17 08:45 Laboratory Results 09/15/17 05:40 10/03/17 10/04/17 10/05/17 05:59 05:59 05:59 Intake Total 850 Balance 850 MSE: Affect: Euthymic Mood: "Good" TP: More organized and better able to focus TC: Denies any SI/HI, no AH/VH Insight/Judgment: Improved - Time Spent With Patient Time Spent With Patient: 15" - Pending Discharge Pending Discharge Within 24 Hours: No Pending Discharge Within 48 Hours: No ICD10 Worksheet Patient Problems: Problems Problem Status Onset Bipolar mood disorder Acute
[2017-10-04] MEDS: OLANZapine DISINTEGR 5 MG TAB PO SCH (20:43)
[2017-10-05 06:39] VITALS: BP 141/79; PULSE 63; RESP 16; TEMP 98; O2SAT 97
[2017-10-05] MEDS: INSULIN GLARGINE 100 UNITS/ML UNIT SC SCH (08:26)
[2017-10-05] MEDS: amLODIPine BESYLATE 5 MG TAB PO SCH (08:26)
[2017-10-05] MEDS: FOLIC ACID 1 MG TAB PO SCH (08:27)
[2017-10-05] MEDS: ASPIRIN EC 81 MG TAB PO SCH (08:27)
[2017-10-05] MEDS: MULTIVITAMINS 1 EACH TAB PO SCH (08:27)
[2017-10-05] MEDS: metFORMIN HCL 500 MG TAB PO SCH (08:27)
[2017-10-05] MEDS: LISINOPRIL 20 MG TAB PO SCH (08:27)
[2017-10-05] MEDS: PSEUDOEPHEDRINE HCL 30 MG TAB PO PRN (08:33)
[2017-10-05] MEDS: INSULIN LISPRO 100 UNIT/1 ML VIAL STANDARD SC SCH ×2 (08:44→13:54)
[2017-10-05] MEDS: ACETAMINOPHEN 325 MG TAB PO PRN (10:17)
--- NOTE | 2017-10-06 19:54 | BDS ---
[f rep st] BEHAVIORAL HEALTH DISCHARGE SUMMARY REASON FOR ADMISSION: Patient is a 72-year-old male with a history of atypical catatonia a nd possible bipolar disorder. He had apparently been treated in the [facility] in [place] from May to July for the same condition, at which time he received a full and very thorough workup fo r dementia. No signs of dementia or even paraneoplastic syndrome were found, and he responded very w ell to a course of 7 ECT treatments. Apparently, he came from [place] at that time to live in [facility] near his daughter and his , who was in the long-term suffering from diffuse Lewy body di sease. When he arrived, he began to deteriorate quickly, became unable to care for himself, paranoid, and wa s not sleeping or eating consistently. He was then referred to the hospital where he was evaluated a nd sent to the [facility]. At the [facility], they decided that he would likely need further ECT and his re turn to our facility for further hospitalization. A full description of the events preceding admissi on can be found in his admission history dated 08/28/2017. ADMITTING DIAGNOSES: Major depressive disorder, recurrent, severe, with psychosis, possible early ca tatonia, possible dementia, stress over 's illness and possible stress related to housing situati on. ADMISSION PHYSICAL EXAMINATION: Performed by Dr. Oscar Hedrick revealed no acute physical findings . ADMISSION LABORATORY: No significant abnormalities were noted. HOSPITAL COURSE: Patient was admitted to the [facility] inpatient unit on an M1 hold. He was extremely agitated, irritable, paranoid, believing that he was unsafe and that others were tr marianne to harm him. I received the extensive records from the [facility] from both his evaluations at [facility] in [place] and his hospitalization in [place]. I reviewed these and was satisfied that elisa scott had had an ample workup for any dementing process. It was very difficult to piece together the exa ct nature of the atypical catatonia, though it was undeniable by the history and by his daughter's re port that he had an excellent response to the ECT with rapid resolution of the symptoms. I, therefor e, proposed to the patient that he consider ECT treatment, and due to his paranoid psychosis, he refu sed. I then petitioned the court for involuntary treatment and we waited for this to occur. In the course of doing that, the patient met with his document review attorney and stipulated to treatment. We did not then require the hearing. He began ECT treatment on 09/09/2017. On that date, he refused. We were unable to physically interv kely, as we were not prepared for him to refuse, as he had been agreeable and we canceled that treatme nt. He then returned on 09/11/2017, and his daughter was present, and he participated willingly in a bilateral ECT treatment starting at 60% maximum energy. He tolerated this treatment very well and h ad subsequent treatments on 09/14, 09/16, 09/18, 09/21, 09/23, 09/24, 09/28, 09/30 and 10/02. He had several points early in the course he would object due to delusional thoughts that we were trying to kill him and that we wanted to take his money and that he refused to be put to sleep. On one occasi on, he required a hands-on restraint with security in order to keep him from pulling out his IV. Thi s only occurred 1 time, and the rest of the time, he was quite peaceful. After approximately the 7th treatment, he was much improved and gave no further resistance. The patient's hospital course was complicated by his ongoing behavioral disturbances and insomnia. Elisa scott was constantly intrusive with others, warning them that they were in danger and barricading himself in his room with furniture. He did not sleep at all for the first several weeks of the admission an d then no more than 4 hours for several weeks after that. Eventually, as he improved with the ECT tr eatments and the catatonia was resolving, I did start him on Zyprexa to address the ongoing prominent paranoid delusions that were causing behavioral problems and aggression. He responded very well to 5 mg of Zyprexa at bedtime and his sleep improved almost immediately. After this, he seemed to turn the corner and his thoughts cleared. His agitation resolved and the delusions also resolved. We were working with the patient's daughter, Dorina, throughout his hospitalization to attempt to f ashion a discharge plan. It is unclear what his ultimate outcome would be, and so it was difficult t o guess where he might go to live after the acute course of ECT was completed. Due to his good respo nse and the resolution of his near normal thinking, he was able to go to an assisted living facility in [place] near where his daughter lives and all were pleased by this. A high level of support wa s put in place with home health nursing coordinated by the acute care clinical nurse specialist. The patient was then to follow up with the [facility] for medical care after that. I discussed with the patient and his daughter the possibility of doing some amount of ongoing mainten ance therapy to hopefully ensure continued stability, as he had a rather rapid relapse last time. Th ey were agreeable to this though patient was initially hesitant but then did agree to participate in ongoing maintenance therapy. We will begin this at a 1 week interval with his 1st appointment back o n 10/12/2017. CONDITION ON DISCHARGE: Stable. His affect was euthymic, stable, and appropriate. He was sleeping more than 7 hours per night, was eating all of his meals, was able to care for his own ADLs, was not objecting to medical treatments, and was demonstrating reasonable cognition. He was also displaying no psychosis or thoughts of suicide, homicide, or violence. He was compliant with medication treatme nts. DISCHARGE MEDICATIONS: Enteric-coated aspirin 81 mg daily, Lantus insulin 35 units subcutaneous alise y, metformin 1000 mg b.i.d., multivitamin 1 daily, Zyprexa 5 mg q.h.s., Januvia 25 mg daily, Norvasc 5 mg daily, and lisinopril 20 mg daily. DISCHARGE DIAGNOSES: 1. Atypical catatonia, resolved. 2. Bipolar I disorder, most recent episode mixed, severe, with psychosis. 3. Recent of . 4. Out-of-home placement. 5. Recurrent illness. DISPOSITION: Patient left the hospital with his family to go to the assisted living. FOLLOWUP: With his outpatient [facility] doctor as scheduled by acute care clinical nurse specialist. Patient and daughter are given the time and date of that appointment at the time of discharge. LEGAL STATUS,: Patient was placed on a short-term certification at the expiration of his M1 hold. S hort-term certification was discontinued at time of his discharge. The patient's attitude was positive at the time of his discharge. Advanced directives were not on file for the patient during his stay, though he was a full code throu ghout. There were no pending labs or studies at the time of his discharge. /[id number]/MODL
== END 2017-10-05 15:15 | DRG 884 ==
LOC: BBEH 23:40
PROVIDERS: ADMIT Psychiatry & Neurology Behavioral Neurology & Neuropsychiatry; ATTEND Psychiatry & Neurology Psychiatry
PROC: GZB2ZZZ Electroconvulsive Therapy, Bilateral-Single Seizure (ICD-10-PCS; principal; 2017-09-11)
DX: F06.1 Catatonic disorder due to known physiological condition (principal); F31.64 Bipolar disorder, current episode mixed, severe, with psychotic features; G47.00 Insomnia, unspecified; I10 Essential (primary) hypertension; E11.9 Type 2 diabetes mellitus without complications; D64.9 Anemia, unspecified; R31.9 Hematuria, unspecified; R80.9 Proteinuria, unspecified
CPT/HCPCS: J0330; J1815; J2001; J2060; J2250; J2405; J2704; J3010

== ENCOUNTER 2017-10-26 10:54 | Emergency (ER) | payer OTHER, MEDICARE ==
--- NOTE | 2017-10-26 11:13 | EDPHY ---
H & P Stated Complaint: GETTING ECT AND STAFF NOTICED MULTIPLE PVC Time Seen by Provider: 10/26/17 11:02 HPI/ROS: CHIEF COMPLAINT: Arrhythmia HISTORY OF PRESENT ILLNESS: The patient is a 72-year-old man with a history of bipolar who was getting ECT therapy this morning. After the therapy staff there noticed that he was having multiple PVCs. The patient had no complaints. They did not have rhythm strip. They obtained an EKG that looks same as previous EKGs. The patient is currently asymptomatic. He denies chest pain or shortness of breath. He denies palpitations or lightheadedness. No recent fevers or illness. REVIEW OF SYSTEMS: Constitutional: denies: chills, fever, recent illness, recent injury EENTM: denies: blurred vision, double vision, nose congestion Respiratory: denies: cough, shortness of breath Cardiac: See HPI denies: chest pain, irregular heart rate, lightheadedness, palpitations Gastrointestinal/Abdominal: denies: abdominal pain, diarrhea, nausea, vomiting, blood streaked stools Genitourinary: denies: dysuria, frequency, hematuria, pain Musculoskeletal: denies: joint pain, muscle pain Skin: denies: lesions, rash, jaundice, bruising Neurological: denies: headache, numbness, paresthesia, tingling, dizziness, weakness Hematologic/Lymphatic: denies: blood clots, easy bleeding, easy bruising Immunologic/allergic: denies: HIV/AIDS, transplant EXAM: GENERAL: Well-appearing, well-nourished and in no acute distress. HEAD: Atraumatic, normocephalic. EYES: Pupils equal round and reactive to light, extraocular movements intact, sclera anicteric, conjunctiva are normal. ENT: TMs normal, nares patent, oropharynx clear without exudates. Moist mucous membranes. NECK: Normal range of motion, supple without lymphadenopathy or JVD. LUNGS: Breath sounds clear to auscultation bilaterally and equal. No wheezes rales or rhonchi. HEART: Regular rate and rhythm without murmurs, rubs or gallops. ABDOMEN: Soft, nontender, normoactive bowel sounds. No guarding, no rebound. No masses appreciated. BACK: No CVA tenderness, no spinal tenderness, step-offs or deformities EXTREMITIES: Normal range of motion, no pitting or edema. No clubbing or cyanosis. NEUROLOGICAL: Cranial nerves II through XII grossly intact. Normal speech, normal gait. 5/5 strength, normal movement in all extremities, normal sensation PSYCH: Normal mood, normal affect. SKIN: Warm, dry, normal turgor, no visible rashes or lesions. Source: Patient Exam Limitations: No limitations - Medical/Surgical History Hx Asthma: No Hx Chronic Respiratory Disease: No Hx Diabetes: Yes Hx Cardiac Disease: No Hx Renal Disease: No Hx Cirrhosis: No Hx Alcoholism: No Hx HIV/AIDS: No Hx Splenectomy or Spleen Trauma: No Other PMH: Past medical history: Hypertension, diabetes, reported history of bipolar mood disorder - Family History Significant Family History: No pertinent family hx - Social History Smoking Status: Never smoked Alcohol Use: Sober Drug Use: None Constitutional: Initial Vital Signs Temperature (C) 37 C 10/26/17 11:04 Heart Rate 65 10/26/17 11:04 Respiratory Rate 16 10/26/17 11:04 Blood Pressure 155/78 H 10/26/17 11:04 O2 Sat (%) 91 L 10/26/17 11:04 O2 Delivery Mode Room Air Allergies/Adverse Reactions: No Known Drug Allergies Allergy (Verified 08/27/17 09:12) Home Medications: Medication Instructions Recorded Aspirin EC [Aspirin EC 81 mg (*)] 81 mg PO DAILY 08/27/17 Multivitamins [Multivitamin (*)] 1 each PO DAILY tab 10/05/17 Insulin Glargine [Lantus Syringe] 35 units SC DAILY 10/09/17 Lisinopril [Zestril 20 mg (*)] 20 mg PO DAILY 10/09/17 OLANZapine [Zyprexa] 5 mg PO HS 10/09/17 amLODIPine BESYLATE [Norvasc 5 mg 5 mg PO DAILY 10/09/17 (*)] metFORMIN HCL [Glucophage 500 mg 1,000 mg PO BIDMEAL 10/09/17 (*)] sitaGLIPtin PHOSPHATE [Januvia 25 25 mg PO DAILY 10/09/17 MG (*)] Medical Decision Making - Diagnostics EKG Interpretation: An EKG obtained and was read and documented in trace view. Please see trace view for full reading and report. Sinus rhythm, LVH, unchanged from previous ED Course/Re-evaluation: Patient is completely well appearing here. His EKG is baseline. He does not wish to have extensive testing. I also agree that this is not necessary. We will observe on the monitor. 1:30 p.m. the patient has not had any arrhythmias while here in the department. He and his friend are eager to go home. He states that he feels completely fine and he thinks that the testing equipment over at [place] was malfunctioning. Differential Diagnosis: Partial list of the Differential diagnosis considered include but were not limited to; arrhythmia, acute coronary disease and although unlikely based on the history and physical exam, I also considered infection, dissection. I discussed these differential diagnoses and the plan with the patient as well as the usual and expected course. The patient understands that the diagnosis is provisional and that in medicine we are not always correct and that further workup is often warranted. Usual and customary warnings were given. All of the patient's questions were answered. The patient was instructed to return to the emergency department should the symptoms at all worsen or return, otherwise to followup with the physician as we discussed. - Data Points Medications Given: Discontinued Medications Acetaminophen (Tylenol) 650 mg PO EDNOW ONE Stop: 10/26/17 11:17 Last Admin: 10/26/17 11:21 Dose: 650 mg Departure - Departure Disposition: Home, Routine, Self-Care Clinical Impression: PVC (premature ventricular contraction) Bipolar mood disorder Qualifiers: Active/Remission status: currently active Current bipolar episode type: mixed Current episode severity: moderate Qualified Code(s): F31.62 - Bipolar disorder , current episode mixed, moderate Condition: Fair Instructions: Electroconvulsive Therapy (ED), Premature Ventricular Contractions (ED) Referrals: Patient,NotPresent [Unknown] - As per Instructions
[2017-10-26] MEDS ORDERED: ACETAMINOPHEN 325 MG TAB PO ONE (11:16)
--- NOTE | 2017-10-26 11:16 | CPEKG ---
Heart Rate: 57 RR Interval: 1053 P-R Interval: 184 QRSD Interval: 90 QT Interval: 436 QTC Interval: 425 P [place]: 25 QRS [place]: -33 T Wave [place]: 24 EKG Severity - ABNORMAL ECG - EKG Impression: SINUS RHYTHM EKG Impression: LEFT AXIS DEVIATION EKG Impression: LEFT VENTRICULAR HYPERTROPHY Electronically Signed By: Nasir Hayes 26-Oct-2017 11:19:01
[2017-10-26 13:58] VITALS: BP 188/63
== END 2017-10-26 13:58 | disposition home or self-care (01) ==
LOC: EDUNIT#
DX: I49.3 Ventricular premature depolarization (principal); F31.62 Bipolar disorder, current episode mixed, moderate; I10 Essential (primary) hypertension; E11.9 Type 2 diabetes mellitus without complications; Z79.4 Long term (current) use of insulin; Z79.82 Long term (current) use of aspirin